=== PATIENT | female | born 1945 | race Caucasian/White ===

== ENCOUNTER 2017-07-10 20:28 | Inpatient (IN) | payer MEDICARE ==
[2017-07-10 21:31] LABS: Actual Bicarbonate (HCO3a) 23.1 mEq/L (22-26); Base Excess (BEa) -0.8 mEq/L (0 (+/-) 2.5); CO2 Tension 36.2 mmHg (35.0-45.0); Hematocrit-ABG 49.3 % (36.0-47.0); O2 Tension (PaO2) 84.7 mmHg (80.0-100.0); pH, Arterial 7.42 (7.35-7.45)
[2017-07-10 21:32] LABS: Analyzer IN Cardio ER; Calcium, Ionized 1.1 mmol/L (1.12-1.30); Hemoglobin (Hb) 15.7 g/dL (12.0-16.0); Puncture Site RBA
--- NOTE | 2017-07-10 21:46 | RAD ---
FRONTAL VIEW CHEST: CLINICALLY INDICATIONS: Dyspnea. COMPARISON: 05/07/2016 FINDINGS: There is a prominent rounded density of the right perihilar region, similar appearing, with persisten ce of an enlarged cardiac silhouette. Prominent central pulmonary vasculature are present. There is obscuration of the left lower lung zone due to the cardiomediastinal silhouette. IMPRESSION: 1. Grossly stable chest with redemonstration of an enlarged cardiac silhouette and prominent right p erihilar density. 2. The left lung base is not reliably visualized on the basis of this exam due to the enlarged cardi ac silhouette, although it is grossly stable. 3. Chronic obstructive pulmonary disease. POS: [facility]
[2017-07-10 21:50] LABS: #Basophils 0.1 thou/uL (0.0-0.2); #Lymphocytes 0.9 thou/uL (1.20-3.40); #Monocytes 0.6 thou/uL (0.11-0.59); #Neutrophils 9.2 thou/uL (1.40-6.50); %Basophils 0.5 % (0.0-1.0); %Eosinophils 0.3 % (0.0-10.0); %Lymphocytes 8.7 % (21.0-51.0); %Monocytes 5.4 % (0.0-10.0); %Neutrophils 85.1 % (42.0-75.0); Hemoglobin 16.2 g/dL (12.0-16.0); Mean Corpuscular HGB CONC 34.2 g/dL (32.0-36.0); Mean Corpuscular Hemoglobin 33.8 pg (27.0-31.0); Mean Platelet Volume 6.9 fL (7.4-10.4); Platelet Count 250 thou/uL (130-400); RBC Distribution Width 13.5 % (11.5-14.5); Red Blood Cell (RBC) Count 4.78 mill/uL (4.20-5.40); White Blood Cell (WBC) Count 10.8 thou/uL (4.8-10.8)
[2017-07-10 22:13] LABS: ALT (SGPT) 44 U/L (8-55); AST (SGOT) 34 U/L (5-34); Albumin 3.9 g/dL (3.4-4.8); Alkaline Phosphatase 71 U/L (40-150); Anion Gap 18 mmol/L (10-20); BUN (Urea Nitrogen) 27 mg/dL (9.8-20.1); Bilirubin, Total 1.7 mg/dL (0.2-1.2); Calc. Creatinine Clearance 0 mL/min (70-130); Calcium 9.2 mg/dL (7.8-10.44); Carbon Dioxide 22 mmol/L (23-31); Chloride 101 mmol/L (98-107); Estimated GFR-MDRD 32; Globulin 2.2 g/dL (2.4-3.5); Glucose 203 mg/dL (83-110); Magnesium 2.1 mg/dL (1.6-2.6); Phosphorus 5.5 mg/dL (2.3-4.7); Potassium 4.4 mmol/L (3.5-5.1); Protein, Total 6.1 g/dL (6.0-8.3); Sodium 137 mmol/L (136-145)
[2017-07-10 22:18] LABS: CKMB 4.1 ng/mL (0-6.6); Troponin I 0.173 ng/mL (< 0.028)
[2017-07-10] MEDS ORDERED: Furosemide 40 MG/4 ML VIAL ONE (22:50)
[2017-07-11] MEDS ORDERED: Acetaminophen 325 MG TAB PO PRN (00:54)
[2017-07-11 01:07] VITALS: BMI 22.8
[2017-07-11] MEDS ORDERED: Senokot 8.6 MG TAB PO PRN (02:24)
[2017-07-11] MEDS ORDERED: Bisacodyl 10 MG SUPP PR PRN (02:24)
[2017-07-11] MEDS ORDERED: Bisacodyl 5 MG TAB PO PRN (02:24)
[2017-07-11 05:18] LABS: #Lymphocytes 0.8 thou/uL (1.20-3.40); %Basophils 0.1 % (0.0-1.0); %Eosinophils 0.2 % (0.0-10.0); %Lymphocytes 7.5 % (21.0-51.0); %Monocytes 8.8 % (0.0-10.0); %Neutrophils 83.5 % (42.0-75.0); Hemoglobin 14.8 g/dL (12.0-16.0); Mean Corpuscular HGB CONC 33.2 g/dL (32.0-36.0); Mean Corpuscular Hemoglobin 32.6 pg (27.0-31.0); Mean Corpuscular Volume 98.3 fl (81.0-99.0); Mean Platelet Volume 6.7 fL (7.4-10.4); Platelet Count 195 thou/uL (130-400); RBC Distribution Width 13.5 % (11.5-14.5); Red Blood Cell (RBC) Count 4.55 mill/uL (4.20-5.40); White Blood Cell (WBC) Count 10.8 thou/uL (4.8-10.8)
[2017-07-11 06:01] LABS: Anion Gap 14 mmol/L (10-20); BUN (Urea Nitrogen) 27 mg/dL (9.8-20.1); Calc. Creatinine Clearance 38 mL/min (70-130); Calcium 8.7 mg/dL (7.8-10.44); Carbon Dioxide 27 mmol/L (23-31); Chloride 101 mmol/L (98-107); Estimated GFR-MDRD 41; Glucose 129 mg/dL (83-110); Potassium 3.4 mmol/L (3.5-5.1); Sodium 139 mmol/L (136-145)
[2017-07-11] MEDS: Levothyroxine Sodium 100 MCG TAB PO SCH (06:17)
[2017-07-11] MEDS: Furosemide 40 MG/4 ML VIAL SLOW IVP SCH ×2 (06:17→14:39)
--- NOTE | 2017-07-11 06:33 | HP ---
CHIEF COMPLAINT: Shortness of breath and bilateral lower extremity swelling. HISTORY OF PRESENT ILLNESS: This is a 72-year-old female with a known history of pulmonary arterial hypertension, who presents with 2-3 day history of progressive shortness of breath and bilateral lower extremity swelling. Additionally, the patient also noticed increased O2 requirements at home and in the emergency department, has pulse oximetry saturation of 80% while on her home nasal cannula. REVIEW OF SYSTEMS: As per HPI. Constitutional: No recent fevers or chills. No recent significant weight loss or gain that the patient is aware of over the last month. HEENT: No new headaches, vision changes, lightheadedness, or dizziness. The patient states that one of her teeth is loose, but she is not sure that this has actually been contributory to her presentation. Cardiovascular: No new chest pain or chest pressure. Respiratory: As per above. No new cough. No new congestion. Gastrointestinal: No nausea, vomiting. Patient reports a retained appetite. No issues with diarrhea or constipation. Genitourinary: No issues with dysuria. Musculoskeletal: No new myalgias or arthralgias. The remainder of the review of systems otherwise negative. PAST MEDICAL HISTORY: Significant for; 1. Pulmonary hypertension. 2. Asthma. 3. Cataracts. PAST SURGICAL HISTORY: Status post appendectomy, status post hysterectomy, status post cholecystectomy, status post multiple Slater catheters placed over the last 20 years for Veletri infusion. HOME MEDICATIONS: The patient's list includes home oxygen, Lasix 80 mg p.o. q.a.m., levothyroxine 100 mcg p.o. daily, epoprostenol sodium 72 mL IV daily, spironolactone 100 mg p.o. b.i.d., furosemide 40 mg p.o. q.p.m., diphenhydramine 50 mg p.o. at bedtime. ALLERGIES: Include ADHESIVE, LATEX, and VANCOMYCIN. FAMILY HISTORY: The patient denies any known family history of other family members having similar issues. SOCIAL HISTORY: Denies any alcohol, tobacco, or illicit drug use. Reports wishing to be FULL CODE at this point in time. PHYSICAL EXAMINATION: GENERAL: The patient is awake, alert, appropriate, in no acute distress, seated in the hospital bed. HEENT: Normocephalic, atraumatic, marginal dentition, slightly dry mucous membranes, equal ocular motions are intact. CARDIOVASCULAR: S1, S2, significant systolic ejection murmur heard over the entire precordium. Pulses 2+ bilateral upper extremities, 2+ bilateral pitting pedal edema. RESPIRATORY: Diminished throughout without wheezes, rales, or rhonchi. Mild conversational dyspnea. Marginal air movement, otherwise clear to auscultation. ABDOMEN: Positive bowel sounds, soft, nontender to palpation. MUSCULOSKELETAL: Moving all 4 extremities independently and on command. IMAGING: On 07/10/2017, chest x-ray: Impression: "Grossly stable chest with redemonstration of an enlarged cardiac silhouette and prominent right perihilar density. The left lung base is not reliably visualized on the basis of this exam due to the enlarged cardiac silhouette, although it is grossly stable. Chronic obstructive pulmonary disease." LABORATORY DATA: WBC 10.8, hemoglobin 16.2, hematocrit 47.3, platelets 250, 000. D-dimer 0.45. ABG: pH of 7.42, pCO2 of 36.2, pO2 of 84.7. Sodium 137, potassium 4.4, chloride 101, bicarbonate 22, BUN 27, creatinine 1.58, glucose 203, calcium 9.2, phosphorus 5.5, magnesium 2.1, total bilirubin 1.7, AST 34, ALT 44, alkaline phosphatase 71. Troponin 0.173. BNP natriuretic peptide 2440.8, total protein 6.1, albumin 3.9. ASSESSMENT AND PLAN: A 72-year-old female presenting with chief complaint of shortness of breath and bilateral lower extremity edema. 1. Shortness of breath with bilateral lower extremity edema. Patient has a known history of pulmonary hypertension. She likely also has a significant amount of heart failure. We will check a transthoracic echo, one that is not found in her outpatient records within the last 6 months. Continue the patient on Lasix. We will transfer her Lasix from oral to IV formulation 40 mg IV b.i.d. with serial monitoring of her renal function and electrolytes. Supplemental O2 as needed. The patient has been placed on a BiPAP at this point in time and feels that this is significantly aided with her respiratory status. 2. History of pulmonary hypertension. Continue the patient on her home regimen as noted above. 3. History of congestive heart failure, see discussion above. 4. Admit the patient to the IMCU on an inpatient basis, FULL CODE. MTDD
[2017-07-11] MEDS: Spironolactone 100 MG TAB PO SCH ×2 (08:42→17:28)
[2017-07-11] MEDS: Enoxaparin Sodium 30 MG/0.3 ML SYRINGE SC SCH (08:42)
[2017-07-11] MEDS: EPOPROSTENOL IV SCH (08:43)
[2017-07-11] MEDS ORDERED: Prevnar 13-Val Conj/PF 0.5 ML SYRINGE IM ONE (09:00)
[2017-07-11] MEDS: Potassium Chloride 20 MEQ TAB PO SCH ×2 (14:39→17:28)
--- NOTE | 2017-07-11 15:31 | CON ---
DATE OF SERVICE: 07/11/2017. SERVICE: Pulmonary Medicine. REASON FOR CONSULTATION: Pulmonary hypertension. HISTORY OF PRESENT ILLNESS: The patient is a 72-year-old white female with a well-established diagnosis of pulmonary arterial hypertension. She has been on Veletri for over 20 years. She denies any current fevers, chills, nausea or vomiting. Over a period of a week, she had increasing dyspnea on exertion. She had increasing dependency on oxygen. As such, she presented to the Emergency Department when she got to the point where she could no longer get across the room anymore. In the Emergency Department, she was carefully placed on noninvasive ventilation. She was given a dose of Lasix. This morning, she feels a little bit better. She hated using her CPAP equipment. She denies any current fevers, chills, nausea or vomiting. Otherwise, she is returning to her usual state of health and is able to talk in full sentences again. PAST MEDICAL HISTORY: 1. Pulmonary arterial hypertension. 2. Asthma. 3. Cataracts. PAST SURGICAL HISTORY: 1. Appendectomy. 2. Cholecystectomy. 3. Partial thyroidectomy. 4. Hysterectomy. 5. Slater catheter placements, multiple. ALLERGIES: ADHESIVES, LATEX, VANCOMYCIN. MEDICATIONS: List of her inpatient medications were reviewed. Multiple updates were made. FAMILY HISTORY: Noncontributory. SOCIAL HISTORY: Negative for alcohol, tobacco or illicit drug use. She denies any exposure to chemicals, dust asbestos or tuberculosis currently. REVIEW OF SYSTEMS: General, head, ears, eyes, nose, throat, cardiovascular, respiratory, GI, , musculoskeletal, neurologic and skin is negative except as mentioned in the HPI. PHYSICAL EXAMINATION: VITAL SIGNS: Afebrile, pulse 89, blood pressure 103/57, respirations 16, saturation 92% on 4 liters nasal cannula. GENERAL: The patient is awake, alert, no apparent distress. LUNGS: Excellent air entry. Dependent crackles are present. There is a minimally prolonged expiratory phase, but I do not hear rhonchi or wheezing. HEART: Normal rate, regular. ABDOMEN: Soft, nontender, nondistended. Bowel sounds are positive. MUSCULOSKELETAL: No cyanosis or clubbing. There is 2+ pitting in the bilateral lower extremities. GENITOURINARY: No [place]. NEUROLOGIC: Grossly nonfocal. LABORATORY DATA: WBC 10.8, hemoglobin 14.8. Platelets 195,000. D-dimer 0.45. ABG is perfectly normal. On 36% FIO2, she has a pO2 of 85. Creatinine 1.29, which has improved overnight. Basic metabolic profile is otherwise unremarkable. Potassium 3.4. Liver function studies were previously unremarkable. BNP 2400 over a baseline of less than 100. Troponin 0.173. IMAGIN. Chest x-ray demonstrates enlarged cardiac silhouette with prominent right perihilar density. 2. Chronic obstructive lung changes are also identified. ASSESSMENT: 1. Acute on chronic hypoxic respiratory failure. 2. Pulmonary arterial hypertension. 3. Right ventricular heart failure/cor pulmonale with acute exacerbation. 4. Asthma. DISCUSSION AND PLAN: We will provide her with 5 days of steroids. We will give her frequent nebulized medications. I will replace potassium. We will try to diurese her. Her end-organ damage seems to be improving, so hopefully, her contractility is going to start to improve as she gets back on top of her Starling curve. If she fails to diurese or develops worsening end-organ damage , we may need to consider putting or adding an inotropic agent to support to the heart and facilitate diuresis. Since she is clearing her end-organ damage, I am going to postpone that intervention. She will need to remain in the IMCU for the time being. Noninvasive ventilation will be interrupted as the patient did not like it, and the positive pressure could decrease the pre load. 70 minutes have been devoted to this patient in various activities. I personally reviewed all imaging studies and laboratory data noted within this document. For fifty percent of this time, I was interacting with the patient at the bedside or coordinating care with the care team. For the remainder of the time I was immediately available to the patient in the hospital unit. ABELARDO
[2017-07-11] MEDS: diphenhydrAMINE 50 MG CAP PO SCH (21:03)
[2017-07-12 04:19] LABS: #Lymphocytes 0.9 thou/uL (1.20-3.40); #Monocytes 0.5 thou/uL (0.11-0.59); %Basophils 0.1 % (0.0-1.0); %Eosinophils 0.4 % (0.0-10.0); %Lymphocytes 12.2 % (21.0-51.0); %Monocytes 7.2 % (0.0-10.0); %Neutrophils 80.2 % (42.0-75.0); Hemoglobin 15.3 g/dL (12.0-16.0); Mean Corpuscular HGB CONC 33.3 g/dL (32.0-36.0); Mean Corpuscular Volume 99.3 fl (81.0-99.0); Mean Platelet Volume 7.1 fL (7.4-10.4); Platelet Count 210 thou/uL (130-400); RBC Distribution Width 13.5 % (11.5-14.5); Red Blood Cell (RBC) Count 4.62 mill/uL (4.20-5.40); White Blood Cell (WBC) Count 7.4 thou/uL (4.8-10.8)
[2017-07-12 04:24] LABS: Anion Gap 14 mmol/L (10-20); BUN (Urea Nitrogen) 27 mg/dL (9.8-20.1); Calc. Creatinine Clearance 41 mL/min (70-130); Calcium 9.2 mg/dL (7.8-10.44); Carbon Dioxide 27 mmol/L (23-31); Chloride 103 mmol/L (98-107); Estimated GFR-MDRD 44; Glucose 112 mg/dL (83-110); Magnesium 1.9 mg/dL (1.6-2.6); Potassium 4.6 mmol/L (3.5-5.1); Sodium 139 mmol/L (136-145)
[2017-07-12] MEDS: Levothyroxine Sodium 100 MCG TAB PO SCH (05:04)
[2017-07-12] MEDS: Furosemide 40 MG/4 ML VIAL SLOW IVP SCH ×2 (05:04→13:52)
[2017-07-12] MEDS: EPOPROSTENOL IV SCH (08:20)
[2017-07-12] MEDS: Spironolactone 100 MG TAB PO SCH ×2 (08:20→17:01)
[2017-07-12] MEDS: Enoxaparin Sodium 30 MG/0.3 ML SYRINGE SC SCH (08:21)
[2017-07-12 09:04] LABS: Free T4 (Free Thyroxine) 1.18 ng/dL (0.70-1.48)
--- NOTE | 2017-07-12 14:06 | PRG ---
DATE OF SERVICE: 07/12/2017 Ms. Stearns says she is feeling better. She is in no distress. She got up and actually walked around the unit today. PHYSICAL EXAMINATION: VITAL SIGNS: She is afebrile, heart rate 84, respiratory rate 16, oximetry is 92 on 4 liters, blood pressure 112/54. LUNGS: Lungs are clear anteriorly. HEART: Regular rhythm. ABDOMEN: Abdomen is soft. IMPRESSION: Pulmonary hypertension. Lab was reviewed. Her white count 7.4, hemoglobin 15.3, platelets 210,000. Electrolytes are normal. Creatinine is down from 1.58 to 1.2. She also has a history of asthma. She said she feels much better than she felt when she was admitted . We will continue with current care.
--- NOTE | 2017-07-12 15:32 | PDOC.PN ---
- Subjective Encounter Start Date: 07/12/17 Encounter Start Time: 08:40 Pt seen for followup re: acute hypoxic respiratory failure. Feels better. less short of breath. Ambulating. Occ cough, no sputum. No fevers or chills. - Objective Resuscitation Status: Resuscitation Status FULL:Full Resuscitation MAR Reviewed: Yes Vital Signs & Weight: Vital Signs (12 hours) Temp Pulse Resp BP Pulse Ox 07/12/17 15:27 94 L 07/12/17 15:24 100 20 94 L 07/12/17 15:09 98.4 F 82 18 100/61 94 L 07/12/17 11:30 84 16 112/54 L 92 L 07/12/17 07:41 98.8 F 93 16 95 07/12/17 07:32 98.8 F 93 16 106/64 95 07/12/17 04:00 97.0 F L 80 18 91/47 L 96 Weight Weight 133 lb 14.4 oz I&O: 07/11/17 07/12/17 07/13/17 06:59 06:59 06:59 Intake Total 515 1515 360 Output Total 900 2200 Balance -385 -685 360 Result Diagrams: 07/12/17 03:27 07/12/17 03:27 EKG Reviewed by me: Yes (Tele: NSR) Phys Exam - Physical Examination Constitutional: NAD HEENT: moist MMs, sclera anicteric, oral pharynx no lesions, 2+ tonsils Neck: no nodes, no JVD, supple, full ROM Respiratory: no wheezing, no rales, no rhonchi, clear to auscultation bilateral Cardiovascular: RRR, no rub S1, S2 Gastrointestinal: soft, non-tender, no distention, positive bowel sounds Musculoskeletal: edema present Neurological: moves all 4 limbs Psychiatric: normal affect, A&O x 3 Dx/Plan (1) Acute respiratory failure with hypoxia Code(s): J96.01 - ACUTE RESPIRATORY FAILURE WITH HYPOXIA Status: Acute Comment: Improving, likely due to PAH (2) MASTER (acute kidney injury) Code(s): N17.9 - ACUTE KIDNEY FAILURE, UNSPECIFIED Status: Acute Comment: Creatinine improving (3) Volume overload Code(s): E87.70 - FLUID OVERLOAD, UNSPECIFIED Status: Acute Comment: continue IV furosemide (4) Pulmonary hypertension Code(s): I27.20 - PULMONARY HYPERTENSION, UNSPECIFIED Status: Chronic Comment: continue epoprostenol (5) Asthma Code(s): J45.909 - UNSPECIFIED ASTHMA, UNCOMPLICATED Status: Chronic Comment : stable - Plan * . Review of Systems - Review of Systems Constitutional: negative: fever, chills, sweats, weakness, malaise Respiratory: Cough, Shortness of Breath, SOB with Excertion. negative: Dry, Hemoptysis, Pleuritic Pain, Sputum, Wheezing Cardiovascular: negative: chest pain, palpitations, orthopnea, paroxysmal nocturnal dyspnea, edema, light headedness Gastrointestinal: negative: Nausea, Vomiting, Abdominal Pain, Diarrhea, Constipation, Melena, Hematochezia Genitourinary: negative: Dysuria, Frequency, Incontinence, Hematuria, Retention Skin: negative: Rash, Lesions, Eddi, Bruising - Medications/Allergies Allergies/Adverse Reactions: Allergies Allergy/AdvReac Type Severity Reaction Status Date / Time adhesive Allergy Verified 07/11/17 05:45 latex Allergy Verified 07/11/17 05:45 vancomycin Allergy Verified 07/11/17 05:45 Medications: Current Medications Albuterol/Ipratropium (Duoneb) 3 ml NEB [id number] [facility] Last Admin: 07/12/17 15:24 Dose: 3 ml Bisacodyl (Dulcolax) 10 mg PO DAILYPRN PRN PRN Reason: Constipation Bisacodyl (Dulcolax) 10 mg IA Q24H PRN PRN Reason: Constipation Diphenhydramine HCl (Benadryl) 50 mg PO HS [facility] Last Admin: 07/11/17 21:03 Dose: 50 mg Enoxaparin Sodium (Lovenox) 30 mg SC 0900 [facility] Last Admin: 07/12/17 08:21 Dose: 30 mg Furosemide (Lasix) 40 mg SLOW IVP 0600,1400 [facility] Last Admin: 07/12/17 13:52 Dose: 40 mg Levothyroxine Sodium (Synthroid) 100 mcg PO 0600 [facility] Last Admin: 07/12/17 05:04 Dose: 100 mcg (Epoprostenol Sodium (Glycine) [ Epoprostenol Sodium 1.5 Mg Iv] 0 each IV DAILY [facility] Last Admin: 07/12/17 08:20 Dose: 1 each Senna (Senokot) 2 tab PO HSPRN PRN PRN Reason: Constipation Spironolactone (Aldactone) 100 mg PO BID-[facility] Last Admin: 07/12/17 08:20 Dose: 100 mg
[2017-07-12] MEDS: diphenhydrAMINE 50 MG CAP PO SCH (21:55)
[2017-07-12] MEDS: Acetaminophen 500 MG TAB PO PRN (23:05)
[2017-07-13 02:44] LABS: #Lymphocytes 0.9 thou/uL (1.20-3.40); #Monocytes 0.7 thou/uL (0.11-0.59); %Basophils 0.3 % (0.0-1.0); %Eosinophils 0.3 % (0.0-10.0); %Lymphocytes 10.9 % (21.0-51.0); %Monocytes 7.7 % (0.0-10.0); %Neutrophils 80.8 % (42.0-75.0); Hemoglobin 14.3 g/dL (12.0-16.0); Mean Corpuscular Hemoglobin 32.6 pg (27.0-31.0); Mean Corpuscular Volume 98.8 fl (81.0-99.0); Mean Platelet Volume 6.7 fL (7.4-10.4); Platelet Count 195 thou/uL (130-400); RBC Distribution Width 13.5 % (11.5-14.5); Red Blood Cell (RBC) Count 4.39 mill/uL (4.20-5.40); White Blood Cell (WBC) Count 8.7 thou/uL (4.8-10.8)
[2017-07-13 03:01] LABS: Troponin I 0.182 ng/mL (< 0.028)
[2017-07-13 03:18] LABS: Anion Gap 14 mmol/L (10-20); BUN (Urea Nitrogen) 29 mg/dL (9.8-20.1); Calc. Creatinine Clearance 41 mL/min (70-130); Calcium 9.2 mg/dL (7.8-10.44); Carbon Dioxide 28 mmol/L (23-31); Chloride 102 mmol/L (98-107); Estimated GFR-MDRD 44; Glucose 117 mg/dL (83-110); Magnesium 1.9 mg/dL (1.6-2.6); Potassium 4.1 mmol/L (3.5-5.1); Sodium 140 mmol/L (136-145)
[2017-07-13] MEDS: Furosemide 40 MG/4 ML VIAL SLOW IVP SCH ×2 (05:38→13:48)
[2017-07-13] MEDS: Levothyroxine Sodium 100 MCG TAB PO SCH (05:38)
[2017-07-13 06:03] LABS: Troponin I 0.177 ng/mL (< 0.028)
--- NOTE | 2017-07-13 08:48 | PRG ---
DATE OF SERVICE: 07/13/2017 This is a 72-year-old female admitted yesterday with marked weakness, history of a DVT. She went to the restaurant to eat, she could barely walk from her table to her car, marked weakness in the leg ar ea. She has been in the ____ now for several days. She is feeling better. Swelling of the legs are much improved. PHYSICAL EXAMINATION: VITAL SIGNS: Her blood pressure is 95/60, sats 90 on 4 liters, temperature 98, pulse 97. Her I's an d O's are 1479 in, 1250 out. CHEST: Chest reveals decreased breath sounds without any wheezing. CARDIAC: Normal S1, S2. ABDOMEN: Soft, no masses. LABORATORY: White count 8000, H&H 8 and 43, platelet count is normal. Creatinine 1.20. IMPRESSION: 1. Primary pulmonary hypertension on long-term Flolan. 2. Mild azotemia. 3. Severe deconditioning. PLAN: Continue diuretics. Continue supportive care. I have ordered PT. I will follow.
[2017-07-13] MEDS: Enoxaparin Sodium 30 MG/0.3 ML SYRINGE SC SCH (08:51)
[2017-07-13] MEDS: Spironolactone 100 MG TAB PO SCH ×2 (08:51→17:02)
[2017-07-13] MEDS: EPOPROSTENOL IV SCH (08:52)
[2017-07-13] MEDS: Acetaminophen 500 MG TAB PO PRN (13:43)
--- NOTE | 2017-07-13 17:33 | PDOC.PN ---
- Subjective Encounter Start Date: 07/13/17 Encounter Start Time: 09:40 Pt seen for followup re: acute hypoxic respiratory failure. Feels better. Ambulating with less shortness of breath. - Objective Resuscitation Status: Resuscitation Status FULL:Full Resuscitation MAR Reviewed: Yes Vital Signs & Weight: Vital Signs (12 hours) Temp Pulse Resp BP Pulse Ox 07/13/17 16:55 98.7 F 104 H 16 105/55 L 92 L 07/13/17 15:03 89 19 93 L 07/13/17 13:40 99.1 F 85 16 109/61 91 L 07/13/17 10:47 94 18 90 L 07/13/17 08:00 98.6 F 97 16 97 07/13/17 07:30 98.6 F 97 16 95/60 89 L 07/13/17 07:03 89 18 94 L Weight Weight 132 lb 4.8 oz I&O: 07/12/17 07/13/17 07/14/17 06:59 06:59 06:59 Intake Total 1515 1479 Output Total 2200 1250 Balance -685 229 Result Diagrams: 07/13/17 02:26 07/13/17 02:26 EKG Reviewed by me: Yes (Tele: NSR, runs of SVT) Phys Exam - Physical Examination Constitutional: NAD HEENT: moist MMs Neck: supple Respiratory: clear to auscultation bilateral Cardiovascular: RRR Gastrointestinal: soft Musculoskeletal: edema present Neurological: moves all 4 limbs Psychiatric: normal affect Dx/Plan (1) Acute respiratory failure with hypoxia Code(s): J96.01 - ACUTE RESPIRATORY FAILURE WITH HYPOXIA Status: Acute Comment: Improving, likely due to PAH and volume overload (2) SVT (supraventricular tachycardia) Code(s): I47.1 - SUPRAVENTRICULAR TACHYCARDIA Status: Acute Comment: Currently in sinus rhythm. Cardiology consulted. (3) MASTER (acute kidney injury) Code(s): N17.9 - ACUTE KIDNEY FAILURE, UNSPECIFIED Status: Acute Comment: Creatinine improved (4) Volume overload Code(s): E87.70 - FLUID OVERLOAD, UNSPECIFIED Status: Acute Comment: continue IV furosemide (5) Pulmonary hypertension Code(s): I27.20 - PULMONARY HYPERTENSION, UNSPECIFIED Status: Chronic Comment: continue epoprostenol (6) Asthma Code(s): J45.909 - UNSPECIFIED ASTHMA, UNCOMPLICATED Status: Chronic Comment : stable - Plan * . Review of Systems - Review of Systems Constitutional: other. negative: fever, chills, sweats, weakness, malaise Respiratory: SOB with Excertion. negative: Cough, Shortness of Breath, Pleuritic Pain, Wheezing Cardiovascular: palpitations. negative: chest pain, orthopnea, paroxysmal nocturnal dyspnea, edema, light headedness - Medications/Allergies Allergies/Adverse Reactions: Allergies Allergy/AdvReac Type Severity Reaction Status Date / Time adhesive Allergy Verified 07/11/17 05:45 latex Allergy Verified 07/11/17 05:45 vancomycin Allergy Verified 07/11/17 05:45 Medications: Current Medications Acetaminophen (Tylenol) 1,000 mg PO Q6H PRN PRN Reason: Headache/Fever or Pain Last Admin: 07/13/17 13:43 Dose: 1,000 mg Albuterol/Ipratropium (Duoneb) 3 ml NEB [id number] Last Admin: 07/13/17 15:03 Dose: 3 ml Bisacodyl (Dulcolax) 10 mg PO DAILYPRN PRN PRN Reason: Constipation Bisacodyl (Dulcolax) 10 mg SC Q24H PRN PRN Reason: Constipation Diphenhydramine HCl (Benadryl) 50 mg PO HS [facility] Last Admin: 07/12/17 21:55 Dose: 50 mg Enoxaparin Sodium (Lovenox) 30 mg SC 0900 [facility] Last Admin: 07/13/17 08:51 Dose: 30 mg Furosemide (Lasix) 40 mg SLOW IVP 0600,1400 [facility] Last Admin: 07/13/17 13:48 Dose: 40 mg Levothyroxine Sodium (Synthroid) 100 mcg PO 0600 [facility] Last Admin: 07/13/17 05:38 Dose: 100 mcg (Epoprostenol Sodium (Glycine) [ Epoprostenol Sodium 1.5 Mg Iv] 0 each IV DAILY [facility] Last Admin: 07/13/17 08:52 Dose: 1 each Senna (Senokot) 2 tab PO HSPRN PRN PRN Reason: Constipation Spironolactone (Aldactone) 100 mg PO BID-[facility] [place] Last Admin: 07/13/17 17:02 Dose: 100 mg
--- NOTE | 2017-07-13 19:18 | CON ---
DATE OF CONSULTATION: 07/13/2017 REASON FOR CONSULTATION: Abnormal echo. HISTORY OF PRESENT ILLNESS: Ms. Stearns is a pleasant 72-year-old white female who comes to the hospit sc for increased shortness of breath and swelling. She has a history of severe pulmonary hypertensio n and has been on Veletri for over 20 years now. She was admitted with increased swelling and shortn ess of breath, so she was admitted for IV Lasix. During her admission, an echocardiogram was perform ed that showed a possible mass in the interatrial septum, so Cardiology is being consulted. Last nig ht, she had an episode of 11 minutes of sustained supraventricular tachycardia, heart rates in the 16 0s. She did not feel well during that time. She felt weak, tired, and presyncopal. PAST MEDICAL HISTORY: 1. Pulmonary arterial hypertension. 2. Bronchial asthma. 3. Cataracts. 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 PAST SURGICAL HISTORY: 1. Appendectomy. 2. Cholecystectomy. 3. Partial thyroidectomy. 4. Hysterectomy. 5. Slater catheter placement, multiple times. OUTPATIENT MEDICATIONS: 1. Home O2. 2. Lasix 80 mg q.a.m. 3. Levothyroxine 100 mcg a day. 4. Glycine, which is epoprostenol 7 mL IV daily. 5. Aldactone 100 mg p.o. b.i.d. 6. Lasix 40 mg p.o. q.p.m. 7. Benadryl 50 mg at bedtime. ALLERGIES: 1. ADHESIVE. 2. LATEX. 3. VANCOMYCIN. FAMILY HISTORY: Noncontributory. SOCIAL HISTORY: No alcohol, tobacco, or drugs. REVIEW OF SYSTEMS: A 12-point review of systems was done and is all negative unless stated in the hi story of present illness. PHYSICAL EXAMINATION: VITAL SIGNS: Temperature 99.1, pulse 85, respiratory rate 16, saturating 91% on 4 liters, blood pres sure 109/61. GENERAL: Awake, alert, oriented x3, in no distress. HEENT: Normocephalic, atraumatic. NECK: Supple. LUNGS: Have reduced breath sounds bilaterally. CARDIOVASCULAR: S1, S2. No S3, S4. There is a grade 3/6 systolic murmur at the left fourth interco stal space right to the rest of the precordium. ABDOMEN: Soft. Positive bowel sounds. EXTREMITIES: 1+ edema. SKIN: Warm and dry. LABORATORY DATA: Laboratory work was reviewed. CBC is unremarkable. Coags, D-dimer is little bit h igh. ABG was reviewed. Chemistries were reviewed. BUN of 29, creatinine 1.2, GFR 44. Normal sodiu m. Potassium little low at 3.4, but this was back on the . Her SVT was overnight on -. Troponin has been 0.18, 0.17. BNP on admission was 2440. TSH was low, but a normal free T4 and sadia e T3. ASSESSMENT AND PLAN: 1. 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 This was performed long time ago in [place] and it looks the same as it has been seen in echocardiograms in the office lately. No need for transesophageal echo at this time. The occlud er is actually working just fine. 2. Sustained supraventricular tachycardia, symptomatic: We will do an EP evaluation for this, as hilaria uribe is a complex case with enlarged right-sided chambers. She may not be a candidate for an ablation. We will discuss with EP. 3. Primary pulmonary hypertension: Followed by Pulmonary. Agree with Sheryl. She is close to being euvolemic, although she still has some fluid in her legs, which is not her normal. She is usually v alicia dry. Thank you for letting us participate in the care of your patient. We will follow.
[2017-07-13] MEDS: diphenhydrAMINE 50 MG CAP PO SCH (21:13)
[2017-07-14] MEDS: Furosemide 40 MG/4 ML VIAL SLOW IVP SCH (05:58)
[2017-07-14] MEDS: Levothyroxine Sodium 100 MCG TAB PO SCH (05:58)
--- NOTE | 2017-07-14 08:59 | PRG ---
DATE OF SERVICE: 07/14/2017 She is awake, alert, responsive, weak. PHYSICAL EXAMINATION: VITAL SIGNS: Sats 97 on 4 liters, I dropped it to 3 liters, temperature 97, pulse 108, blood pressu re 110/70, 10/10 pain, discomfort, is clearly weak. CHEST: Chest reveals decreased breath sounds, no wheezing. CARDIAC: Normal S1, S2, no gallops. ABDOMEN: Soft, no masses. IMPRESSION: 1. Severe pulmonary hypertension with right-sided failure. 2. Marked weakness. 3. Normal ejection fraction. PLAN: Continue present diuretics. Supportive care. Hopefully, she can be discharged home in the near future. I will follow.
[2017-07-14] MEDS: Spironolactone 100 MG TAB PO SCH ×2 (09:25→17:06)
[2017-07-14] MEDS: Enoxaparin Sodium 30 MG/0.3 ML SYRINGE SC SCH (09:25)
[2017-07-14] MEDS: EPOPROSTENOL IV SCH (09:26)
--- NOTE | 2017-07-14 12:07 | PDOC.PN ---
- Subjective Encounter Start Date: 07/14/17 Encounter Start Time: 09:40 states she is doing better however has noticed that her HR consistently stays over 100 - Objective Resuscitation Status: Resuscitation Status FULL:Full Resuscitation Vital Signs & Weight: Vital Signs (12 hours) Temp Pulse Resp BP Pulse Ox 07/14/17 11:49 96.7 F L 102 H 20 102/74 98 07/14/17 11:06 104 H 18 07/14/17 08:00 98 F 108 H 18 91 L 07/14/17 07:42 97.5 F L 104 H 111/70 97 07/14/17 03:42 97.3 F L 89 17 121/59 L 100 Weight Weight 132 lb 3 oz I&O: 07/13/17 07/14/17 07/15/17 06:59 06:59 06:59 Intake Total 1479 1829 Output Total 1250 2100 Balance 229 -271 Result Diagrams: 07/13/17 02:26 07/13/17 02:26 Phys Exam - Physical Examination Constitutional: NAD HEENT: PERRLA, moist MMs, sclera anicteric Neck: no nodes, no JVD, supple Respiratory: no wheezing, no rales, no rhonchi fine crackles b/l Cardiovascular: no significant murmur, no rub tachycardic Gastrointestinal: soft, non-tender, no distention Musculoskeletal: pulses present Neurological: non-focal, moves all 4 limbs Psychiatric: normal affect, A&O x 3 Skin: cap refill <2 seconds Dx/Plan (1) MASTER (acute kidney injury) Code(s): N17.9 - ACUTE KIDNEY FAILURE, UNSPECIFIED Status: Acute Comment: Creatinine improved (2) Acute respiratory failure with hypoxia Code(s): J96.01 - ACUTE RESPIRATORY FAILURE WITH HYPOXIA Status: Acute Comment: Improving, likely due to PAH and volume overload (3) SVT (supraventricular tachycardia) Code(s): I47.1 - SUPRAVENTRICULAR TACHYCARDIA Status: Acute Comment: Currently in sinus rhythm but tachycardic (4) Asthma Code(s): J45.909 - UNSPECIFIED ASTHMA, UNCOMPLICATED Status: Chronic Comment : stable (5) Pulmonary hypertension Code(s): I27.20 - PULMONARY HYPERTENSION, UNSPECIFIED Status: Chronic Comment: continue epoprostenol - Plan cont current plan of care, plan discussed w/ family * . awaiting eval from EP who are coming from [place] apparently HR continues to be over 100 and while talking, it goes higher than 110. supportive care mgmt
--- NOTE | 2017-07-14 12:47 | PDOC.CTH ---
Cardiology Progress Note - Subjective She is doing better. No more SVT. Diuresing well. - Objective Vital Signs Temp Pulse Resp BP Pulse Ox 07/14/17 11:49 96.7 F L 102 H 20 102/74 98 07/14/17 11:06 104 H 18 07/14/17 08:00 98 F 108 H 18 91 L 07/14/17 07:42 97.5 F L 104 H 111/70 97 07/14/17 03:42 97.3 F L 89 17 121/59 L 100 Weight 132 lb 3 oz 07/13/17 07/14/17 07/15/17 06:59 06:59 06:59 Intake Total 1479 1829 Output Total 1250 2100 Balance 229 -271 - Physical Examination General/Neuro: alert & oriented x3, NAD Neck: no JVD present Lungs: CTA, unlabored respirations Heart: RRR Abdomen: NT/ND Extremities: other: (no edema.) - Telemetry Telemetry Rhythm: S tach, PVC's - Labs Result Diagrams: 07/13/17 02:26 07/13/17 02:26 Troponin/CKMB CK-MB (CK-2) 4.1 ng/mL (0-6.6) 07/10/17 21:36 Troponin I 0.177 ng/mL (< 0.028) H 07/13/17 04:43 - Assessment/Plan 1. SVT 2. Pulmonary hypertension with acute exacerbation PLAN: - Agree with continued IV lasix - EP consult pending.
[2017-07-14] MEDS: Mometasone/Formoterol 120 PUFF INHALER INH SCH (18:26)
--- NOTE | 2017-07-14 19:40 | CON ---
DATE OF CONSULTATION: 07/14/2017 ELECTROPHYSIOLOGY CONSULTATION REQUESTING PHYSICIAN: Dr. Monzon. REASON FOR REQUEST: Supraventricular tachycardia. HISTORY OF PRESENT ILLNESS: Ms. Stearns is a 72-year-old female with a history of severe pulmonary hyp ertension, chronic kidney disease, ASD, status post ASD occlusion device, who was admitted to the [facility] with shortness of breath. She has been treated for this, and during hospitalization has been n oted to have an elevated heart rate as well as a 15-minute period of supraventricular tachycardia. S he states that she was asleep when this occurred and she is essentially asymptomatic with her heart c urrently. PAST MEDICAL HISTORY: Significant for severe pulmonary hypertension; ASD, status post ASD closure; h istory of stroke, diastolic dysfunction, thyroidectomy, chronic kidney disease, and prolonged QT. MEDICATIONS: Include spironolactone, Lasix, Synthroid, Zyrtec, and intravenous Veletri. FAMILY HISTORY: No early coronary artery disease, sudden cardiac . SOCIAL HISTORY: She does not drink, smoke, use illicit medications. REVIEW OF SYSTEMS: Reviewed. She denies nausea, vomiting, diarrhea, fevers, chills, change in visio n or hearing loss the HPI. PHYSICAL EXAMINATION: VITAL SIGNS: Pulse is 120, blood pressure 112/72. HEENT: Pupils equal, round, react to light and accommodation. Extraocular movements are intact. No se midline. Septum has no rhinorrhea or epistaxis. Throat, no erythema or exudate. NECK: Supple without lymphadenopathy or goiter. There . LUNGS: Reveal diminished breath sounds bilaterally. HEART: Tachycardic with distant heart sounds. LUNGS: Diminished breath sounds bilaterally. ABDOMEN: Soft, nontender, nondistended. Present bowel sounds. EXTREMITIES: Without cyanosis, clubbing, or edema. NEUROLOGIC: Cranial nerves II-XII are grossly intact. DIAGNOSTICS: Echocardiogram shows left ventricular ejection fraction and ASD occluder in situ. Tele metry reveals sinus tachycardia, PVCs, and nonsustained ventricular tachycardia, and an episode that appeared to be consistent with atrial tachycardia. Electrocardiogram, sinus rhythm, biatrial enlarge ment, right bundle branch block, right ventricular conduction delay. IMPRESSION: 1. Severe pulmonary hypertension. 2. Atrial tachycardia. 3. History of atrial septal defect closure with an Amplatzer device. 4. Chronic kidney disease. 5. Prolonged QT. RECOMMENDATIONS: Ms. Stearns has a difficult situation. She has severe lung disease with pulmonary hy pertension along with this sinus tachycardia as well as atrial tachycardias are frequently seen in ad dition to the nonsustained ventricular tachycardia that she has. I would recommend optimization of h er lung status if possible. Regarding arrhythmia treatment, she does not have great options for this , ablation would likely be a high risk. She also has limited medical options with her previous histo ry of prolonged QT. One option to be considered would be verapamil if okay with her pulmonary doctor s, as this occasionally is helpful for pulmonary hypertension, diastolic dysfunction, and may help co ntrol heart rates in atrial tachycardia.
[2017-07-14] MEDS: diphenhydrAMINE 50 MG CAP PO SCH (20:56)
[2017-07-14] MEDS: Acetaminophen 500 MG TAB PO PRN (22:58)
[2017-07-15] MEDS: Levothyroxine Sodium 100 MCG TAB PO SCH (06:18)
[2017-07-15] MEDS: Furosemide 40 MG TAB PO SCH (06:18)
[2017-07-15] MEDS: Mometasone/Formoterol 120 PUFF INHALER INH SCH ×2 (07:18→18:03)
[2017-07-15] MEDS: Spironolactone 100 MG TAB PO SCH ×2 (08:35→17:30)
[2017-07-15] MEDS: Enoxaparin Sodium 30 MG/0.3 ML SYRINGE SC SCH (08:35)
[2017-07-15] MEDS: EPOPROSTENOL IV SCH (08:45)
--- NOTE | 2017-07-15 09:00 | PRG ---
DATE OF SERVICE: 07/15/2017 This morning she is awake, alert, responsive. She had a run of V-tach last night. Apparently she is asymptomatic. PHYSICAL EXAMINATION: VITAL SIGNS: Her sats are running 95% on 3 liters, pulse 103, temperature 96, blood pressure 99/61. Cough is improved. CHEST: No wheezing or crackles. CARDIAC: Normal S1, S2, no gallops. ABDOMEN: Soft, no mass. EXTREMITIES: Trace edema. IMPRESSION: 1. Primary pulmonary hypertension, severe long-term flow line. 2. History of ASD, status post patch. 3. Renal failure. PLAN: EP is considering starting verapamil. From a pulmonary standpoint of view, I see no reason to start verapamil. In the meantime, continue l ow flow O2, neb treatments, supportive care. Long-term prognosis is grave. She was encouraged to go back to see her pulmonary hypertension doctor in [place] at some time.
--- NOTE | 2017-07-15 13:48 | PDOC.PN ---
- Subjective Encounter Start Date: 07/15/17 Encounter Start Time: 09:40 Pt seen and examined, chart reviewed in its entirety, this is my first visit with this patient Pt sleeping soundly, 92% on 3L, easily arousable. no f/C, no n/V/dC, no CP, SOb stable, no new complaints No acute events, no new complaints all systems reviewed and neg x as above - Objective Resuscitation Status: Resuscitation Status FULL:Full Resuscitation MAR Reviewed: Yes Vital Signs & Weight: Vital Signs (12 hours) Temp Pulse Resp BP Pulse Ox 07/15/17 11:34 97.7 F 100 105/73 92 L 07/15/17 10:35 115 H 18 92 L 07/15/17 08:30 96.6 F L 103 H 16 95 07/15/17 07:55 96.6 F L 103 H 99/61 95 07/15/17 07:17 98 16 95 07/15/17 03:47 98.4 F 95 17 113/64 91 L Weight Weight 134 lb I&O: 07/14/17 07/15/17 07/16/17 06:59 06:59 06:59 Intake Total 1829 1600 250 Output Total 2100 1925 700 Balance -271 -325 -450 Result Diagrams: 07/13/17 02:26 07/13/17 02:26 Radiology Reviewed by me: Yes EKG Reviewed by me: Yes Phys Exam - Physical Examination Constitutional: NAD HEENT: PERRLA, moist MMs, sclera anicteric, oral pharynx no lesions Neck: no nodes, no JVD, supple, full ROM Respiratory: no wheezing, no rhonchi bibasilar coarse rales Cardiovascular: RRR, no rub 3/6 HSM LLSB Gastrointestinal: soft, non-tender, no distention, positive bowel sounds Musculoskeletal: pulses present, edema present Neurological: non-focal, normal sensation, moves all 4 limbs Lymphatic: no nodes Psychiatric: normal affect, A&O x 3 Skin: no rash, normal turgor, cap refill <2 seconds Dx/Plan (1) MASTER (acute kidney injury) Code(s): N17.9 - ACUTE KIDNEY FAILURE, UNSPECIFIED Status: Acute Comment: Creatinine improved, not checked since 07/13, AM labs ordered (2) Acute respiratory failure with hypoxia Code(s): J96.01 - ACUTE RESPIRATORY FAILURE WITH HYPOXIA Status: Acute Comment: Improving, likely due to PAH and volume overload (3) SVT (supraventricular tachycardia) Code(s): I47.1 - SUPRAVENTRICULAR TACHYCARDIA Status: Acute Comment: Currently in sinus rhythm but tachycardic (4) Volume overload Code(s): E87.70 - FLUID OVERLOAD, UNSPECIFIED Status: Acute Qualifiers: Hypervolemia type: other Qualified Code(s): E87.79 - Other fluid overload Comment: continue IV furosemide (5) Asthma Code(s): J45.909 - UNSPECIFIED ASTHMA, UNCOMPLICATED Status: Chronic Qualifiers: Asthma severity: unspecified severity Asthma persistence: intermittent Asthma complication type: uncomplicated Qualified Code(s): J45.20 - Mild intermittent asthma, uncomplicated Comment: stable (6) Pulmonary hypertension Code(s): I27.20 - PULMONARY HYPERTENSION, UNSPECIFIED Status: Chronic Comment: continue epoprostenol - Plan cont current plan of care, PT/OT, respiratory therapy, out of bed/ambulate * .
--- NOTE | 2017-07-15 17:30 | PDOC.CTH ---
Cardiology Progress Note - Subjective No new issues. - Objective Vital Signs Temp Pulse Resp BP Pulse Ox 07/15/17 16:00 97.9 F 101 H 116/66 92 L 07/15/17 14:57 111 H 20 92 L 07/15/17 11:34 97.7 F 100 105/73 92 L 07/15/17 10:35 115 H 18 92 L 07/15/17 08:30 96.6 F L 103 H 16 95 07/15/17 07:55 96.6 F L 103 H 99/61 95 07/15/17 07:17 98 16 95 Weight 134 lb 07/14/17 07/15/17 07/16/17 06:59 06:59 06:59 Intake Total 1829 1600 550 Output Total 2100 1925 700 Balance -271 -325 -150 - Physical Examination General/Neuro: alert & oriented x3, NAD Neck: no JVD present Lungs: other: (decreased breath sounds bilat) Heart: RRR Abdomen: NT/ND Extremities: + edema B (1+) - Telemetry Telemetry Rhythm: Stach, NSVT - Labs Result Diagrams: 07/13/17 02:26 07/13/17 02:26 Troponin/CKMB CK-MB (CK-2) 4.1 ng/mL (0-6.6) 07/10/17 21:36 Troponin I 0.177 ng/mL (< 0.028) H 07/13/17 04:43 - Assessment/Plan 1. SVT 2. Pulmonary hypertension with acute exacerbation 3. Non sustained VT PLAN: - Appreciate EP evaluation, no good ablative options, recommends verapamil however her BP is borderline low and she ,may not tolerate it at all. We risk a fall and she would not survive a hip surgery. - After a log conversation with her we decided we will continue on current meds , will not start verapamil due to concern for low BP's. - Not a good candidate for a [facility] in the setting of severe pulmonary HTN as she would not survive any complications.
[2017-07-15] MEDS: diphenhydrAMINE 50 MG CAP PO SCH (20:27)
[2017-07-15] MEDS: Acetaminophen 500 MG TAB PO PRN (20:32)
[2017-07-16 04:32] LABS: #Monocytes 0.6 thou/uL (0.11-0.59); #Neutrophils 6.2 thou/uL (1.40-6.50); %Basophils 0.2 % (0.0-1.0); %Eosinophils 0.5 % (0.0-10.0); %Lymphocytes 12.3 % (21.0-51.0); %Monocytes 7.8 % (0.0-10.0); %Neutrophils 79.1 % (42.0-75.0); Hemoglobin 14.1 g/dL (12.0-16.0); Mean Corpuscular HGB CONC 33.2 g/dL (32.0-36.0); Mean Corpuscular Hemoglobin 32.5 pg (27.0-31.0); Mean Corpuscular Volume 98.1 fl (81.0-99.0); Mean Platelet Volume 6.9 fL (7.4-10.4); Platelet Count 195 thou/uL (130-400); RBC Distribution Width 13.3 % (11.5-14.5); Red Blood Cell (RBC) Count 4.33 mill/uL (4.20-5.40); White Blood Cell (WBC) Count 7.8 thou/uL (4.8-10.8)
[2017-07-16 04:44] LABS: Anion Gap 13 mmol/L (10-20); BUN (Urea Nitrogen) 29 mg/dL (9.8-20.1); Calc. Creatinine Clearance 46 mL/min (70-130); Calcium 9.5 mg/dL (7.8-10.44); Carbon Dioxide 29 mmol/L (23-31); Chloride 99 mmol/L (98-107); Estimated GFR-MDRD 50; Glucose 109 mg/dL (83-110); Magnesium 2.1 mg/dL (1.6-2.6); Potassium 3.9 mmol/L (3.5-5.1); Sodium 137 mmol/L (136-145)
[2017-07-16] MEDS: Levothyroxine Sodium 100 MCG TAB PO SCH (06:17)
[2017-07-16] MEDS: Mometasone/Formoterol 120 PUFF INHALER INH SCH ×2 (07:34→19:42)
--- NOTE | 2017-07-16 08:38 | PRG ---
DATE OF SERVICE: 07/16/2017 She is awake, alert, responsive. PHYSICAL EXAMINATION: VITAL SIGNS: Blood pressure is 100/80, sats are 90% on 3 liters, respiration 20, pulse 107, temperat ure 97. GENERAL: She is weak. She has got 2+ ankle edema. CHEST: Chest reveals decreased breath sounds, no wheezing. CARDIAC: Normal S1, S2. ABDOMEN: Soft, no masses. Electrolytes are normal. CBC unremarkable. IMPRESSION: 1. Primary pulmonary hypertension. 2. Severe hypoxemia. 3. Supraventricular tachycardia and V-tach. PLAN: Apparently EP has restarted verapamil because of low blood pressure. At this stage, nothing a dditional can be done. She can be discharged home on her present medication. Once again, I have ask ed her to go and follow up with her transplant physician in [place]. Locally she has seen a insulation worker apprentice, Dr. Monzon.
[2017-07-16] MEDS: Spironolactone 100 MG TAB PO SCH ×2 (08:51→17:56)
[2017-07-16] MEDS: EPOPROSTENOL IV SCH (08:52)
[2017-07-16] MEDS: Enoxaparin Sodium 30 MG/0.3 ML SYRINGE SC SCH (08:52)
[2017-07-16] MEDS: Furosemide 40 MG TAB PO SCH (08:52)
[2017-07-16] MEDS ORDERED: traMADol HCl 50 MG TAB PO PRN (11:51)
[2017-07-16] MEDS ORDERED: Nitroglycerin 0.4 MG TAB (25 Tab Bottle) SL PRN (11:51)
[2017-07-16] MEDS ORDERED: Acetaminophen/Codeine 30-300mg Tablet PO PRN (11:51)
[2017-07-16] MEDS ORDERED: Sodium Chloride 0.9% 200 ML IV SCH (12:00)
[2017-07-16] MEDS ORDERED: Sodium Chloride 0.9% 1,000 ML IV SCH (12:00)
--- NOTE | 2017-07-16 13:22 | PDOC.PN ---
- Subjective Encounter Start Date: 07/16/17 Encounter Start Time: 10:40 Pt awake and sitting up. complaining of peripheral edema. lost IV site, discussed with Dr Monzon, high dose po lasix ordered. No F/C, no CP, +KIDD, orthopnea, no PND. no N/V/D/C no new complaints All systems reviewed adn neg x as per HPI - Objective Resuscitation Status: Resuscitation Status FULL:Full Resuscitation MAR Reviewed: Yes Vital Signs & Weight: Vital Signs (12 hours) Temp Pulse Resp BP Pulse Ox 07/16/17 12:00 97.0 F L 102 H 20 101/61 89 L 07/16/17 11:36 99 16 91 L 07/16/17 08:00 97.5 F L 107 H 20 96 07/16/17 07:34 107 H 20 92 L 07/16/17 07:23 92 L 07/16/17 07:21 107 H 20 92 L 07/16/17 07:00 97.5 F L 96 20 113/73 96 07/16/17 03:45 97.8 F 109 H 20 98/54 L 93 L Weight Weight 135 lb I&O: 07/15/17 07/16/17 07/17/17 06:59 06:59 06:59 Intake Total 1600 1375 Output Total 1925 1275 Balance -325 100 Result Diagrams: 07/16/17 03:54 07/16/17 03:54 Phys Exam - Physical Examination Constitutional: NAD HEENT: PERRLA, moist MMs, sclera anicteric, oral pharynx no lesions Neck: no nodes, no JVD, supple, full ROM bilateral coarse rales, no wheezes Cardiovascular: RRR, no rub 4/6 HSM LUSB Gastrointestinal: soft, non-tender, no distention, positive bowel sounds Musculoskeletal: edema present Neurological: non-focal, normal sensation, moves all 4 limbs Lymphatic: no nodes Psychiatric: normal affect, A&O x 3 Skin: no rash, normal turgor, cap refill <2 seconds Dx/Plan (1) MASTER (acute kidney injury) Code(s): N17.9 - ACUTE KIDNEY FAILURE, UNSPECIFIED Status: Acute Comment: Creatinine improved, 1.08 (2) Acute respiratory failure with hypoxia Code(s): J96.01 - ACUTE RESPIRATORY FAILURE WITH HYPOXIA Status: Acute Comment: Improving, likely due to PAH and volume overload (3) SVT (supraventricular tachycardia) Code(s): I47.1 - SUPRAVENTRICULAR TACHYCARDIA Status: Resolved Comment: Currently in sinus rhythm but tachycardic (4) Volume overload Code(s): E87.70 - FLUID OVERLOAD, UNSPECIFIED Status: Acute Qualifiers: Hypervolemia type: other Qualified Code(s): E87.79 - Other fluid overload Comment: continue po furosemide, almost euvolemic (5) Asthma Code(s): J45.909 - UNSPECIFIED ASTHMA, UNCOMPLICATED Status: Chronic Qualifiers: Asthma severity: unspecified severity Asthma persistence: intermittent Asthma complication type: uncomplicated Qualified Code(s): J45.20 - Mild intermittent asthma, uncomplicated Comment: stable (6) Pulmonary hypertension Code(s): I27.20 - PULMONARY HYPERTENSION, UNSPECIFIED Status: Chronic Comment: continue epoprostenol - Plan cont current plan of care, PT/OT, respiratory therapy, out of bed/ambulate * .
--- NOTE | 2017-07-16 13:31 | PRG ---
DATE OF SERVICE: 07/16/2017 SUBJECTIVE: The patient was seen and evaluated. No new cardiac concerns or complaints. Overall, reagan sung is feeling fairly well and does not have any complaints at the moment. OBJECTIVE: VITAL SIGNS: Most recent vital signs 97.0, pulse 102, respirations 20, oxygen saturation 91% on 3 li ters nasal cannula, blood pressure 101/61. GENERAL: Alert and oriented x3 in no acute distress. NECK: Supple, without jugular venous distention. LUNGS: Lung sounds are slightly decreased bilaterally, but otherwise clear to auscultation. HEART: Rate is regularly regular at the moment. ABDOMEN: Soft, nontender, without palpable masses. EXTREMITIES: Warm and dry to touch with 1+ pitting edema noted to bilateral lower extremities. NEUROLOGIC: Grossly intact and nonfocal. Review of telemetry and EKGs reveals a largely sinus rhythm with occasional episodes of nonsustained ventricular tachycardia, paroxysmal atrial tachycardia as well as sinus tachycardia. Largely asympto matic with her arrhythmias. LABORATORY DATA: Hematology unremarkable. Chemistry from today was reviewed and unremarkable as wel l. ASSESSMENT: 1. Recurrent atrial arrhythmias. 2. Severe pulmonary hypertension. 3. Paroxysmal atrial tachycardia. 4. Nonsustained ventricular tachycardia. 5. History of atrial septal defect closure with an Amplatzer device. 6. Chronic kidney disease. 7. History of prolonged QT. PLAN: As aforementioned, Ms. Stearns does present a fairly difficult situation given her severe lung d isease, pulmonary hypertension as well as arrhythmias. Her blood pressure continues to be borderline and medical management may cause further lowering of her blood pressure. That being said, it is not unreasonable to attempt low-dose verapamil at 40 mg b.i.d. in addition to low dose digoxin 0.125 mg daily to attempt some rate control with her multiple arrhythmias. Alternatively, low dose amiodarone of 200 mg daily could be considered. Although amiodarone is not ideal given her history of lung dis ease, a low dose therapy would likely be well tolerated without long-term complications. That being said, at this point, I would recommend initiating a low dose verapamil in addition to digoxin as ment ioned above to treat atrial arrhythmias, ventricular arrhythmias as well as her pulmonary hypertensio n.
[2017-07-16] MEDS: Furosemide 80 MG TAB PO SCH (15:30)
[2017-07-16] MEDS: Acetaminophen 500 MG TAB PO PRN (18:00)
--- NOTE | 2017-07-16 18:05 | PDOC.CTH ---
Cardiology Progress Note - Subjective She is doing better but still not to her dry weight. Her legs are still much more swollen than baseline. - Objective Vital Signs Temp Pulse Resp BP Pulse Ox 07/16/17 15:40 97.7 F 110 H 22 H 110/67 96 07/16/17 15:11 109 H 20 91 L 07/16/17 12:00 97.0 F L 102 H 20 101/61 89 L 07/16/17 11:36 99 16 91 L 07/16/17 08:00 97.5 F L 107 H 20 96 07/16/17 07:34 107 H 20 92 L 07/16/17 07:23 92 L 07/16/17 07:21 107 H 20 92 L 07/16/17 07:00 97.5 F L 96 20 113/73 96 Weight 135 lb 07/15/17 07/16/17 07/17/17 06:59 06:59 06:59 Intake Total 1600 1375 Output Total 1925 1275 Balance -325 100 - Physical Examination General/Neuro: alert & oriented x3, NAD Neck: no JVD present Lungs: other: (Mild crackles. ) Heart: RRR Abdomen: NT/ND, soft Extremities: + edema B (2+) - Telemetry Telemetry Rhythm: NSR, PVC's - Labs Result Diagrams: 07/16/17 03:54 07/16/17 03:54 Troponin/CKMB CK-MB (CK-2) 4.1 ng/mL (0-6.6) 07/10/17 21:36 Troponin I 0.177 ng/mL (< 0.028) H 07/13/17 04:43 - Assessment/Plan 1. SVT 2. Pulmonary hypertension with acute exacerbation 3. Non sustained VT PLAN: - Will increase her PO lasix to 80 mg BID. - Home soon. - Monitor for electrolyte abnormalities.
[2017-07-16] MEDS: diphenhydrAMINE 50 MG CAP PO SCH (21:22)
[2017-07-17 04:34] LABS: #Lymphocytes 0.8 thou/uL (1.20-3.40); #Monocytes 0.7 thou/uL (0.11-0.59); #Neutrophils 6.7 thou/uL (1.40-6.50); %Basophils 0.3 % (0.0-1.0); %Eosinophils 0.6 % (0.0-10.0); %Lymphocytes 9.7 % (21.0-51.0); %Monocytes 7.9 % (0.0-10.0); %Neutrophils 81.5 % (42.0-75.0); Hemoglobin 14.7 g/dL (12.0-16.0); Mean Corpuscular HGB CONC 32.2 g/dL (32.0-36.0); Mean Corpuscular Hemoglobin 31.7 pg (27.0-31.0); Mean Corpuscular Volume 98.3 fl (81.0-99.0); Platelet Count 211 thou/uL (130-400); RBC Distribution Width 13.4 % (11.5-14.5); Red Blood Cell (RBC) Count 4.64 mill/uL (4.20-5.40); White Blood Cell (WBC) Count 8.3 thou/uL (4.8-10.8)
[2017-07-17 04:49] LABS: Anion Gap 13 mmol/L (10-20); BUN (Urea Nitrogen) 26 mg/dL (9.8-20.1); Calc. Creatinine Clearance 41 mL/min (70-130); Calcium 9.3 mg/dL (7.8-10.44); Carbon Dioxide 31 mmol/L (23-31); Chloride 97 mmol/L (98-107); Estimated GFR-MDRD 43; Glucose 98 mg/dL (83-110); Magnesium 2.3 mg/dL (1.6-2.6); Potassium 4.1 mmol/L (3.5-5.1); Sodium 137 mmol/L (136-145)
[2017-07-17] MEDS: Levothyroxine Sodium 100 MCG TAB PO SCH (05:57)
[2017-07-17] MEDS: Mometasone/Formoterol 120 PUFF INHALER INH SCH (07:24)
[2017-07-17] MEDS: EPOPROSTENOL IV SCH (08:53)
[2017-07-17] MEDS: Enoxaparin Sodium 30 MG/0.3 ML SYRINGE SC SCH (08:54)
[2017-07-17] MEDS: Furosemide 80 MG TAB PO SCH (08:54)
[2017-07-17] MEDS: Spironolactone 100 MG TAB PO SCH (08:54)
--- NOTE | 2017-07-17 10:26 | PDOC.CTH ---
Cardiology Progress Note - Subjective She is doing better,. Breathing is still not at baseline She did diurese some overnight and her edema is better. - Objective Vital Signs Temp Pulse Resp BP BP Pulse Ox 07/17/17 08:00 97.5 F L 77 18 97 07/17/17 07:31 97.5 F L 77 18 117/65 97 07/17/17 07:24 91 L 07/17/17 07:22 93 18 91 L 07/17/17 04:00 97.2 F L 97 18 100/65 95 07/17/17 00:00 98.4 F 103 H 20 103/72 92 L Weight 135 lb 1.6 oz 07/16/17 07/17/17 07/18/17 06:59 06:59 06:59 Intake Total 1375 1070 Output Total 1275 1550 Balance 100 -480 - Physical Examination General/Neuro: alert & oriented x3, NAD Neck: no JVD present Lungs: other: (bilat cracles) Heart: RRR Abdomen: NT/ND Extremities: + edema B (trace) - Telemetry Telemetry Rhythm: S Tach, non sust SVT - Labs Result Diagrams: 07/17/17 04:12 07/17/17 04:12 Troponin/CKMB CK-MB (CK-2) 4.1 ng/mL (0-6.6) 07/10/17 21:36 Troponin I 0.177 ng/mL (< 0.028) H 07/13/17 04:43 - Assessment/Plan 1. SVT 2. Pulmonary hypertension with acute exacerbation 3. Non sustained VT PLAN: - Continue Lasix at 80 mg BID for the next 3 to 5 days and then she will go back to her home dose of 80mg in AM and 40 mg in PM. - Will start verapamil at very low dose 40 mg BID - May discharge home. - She has an appointment with me on Wednesday of this week and she will keep this.
[2017-07-17 11:43] VITALS: BP 101/57; TEMP 97.8
--- NOTE | 2017-07-17 16:40 | PRG ---
DATE OF SERVICE: 07/17/2017 Ms. Stearns did well overnight. She is stable on oxygen. She has no complaints, feels like she is alysa dy to go home. Lungs, heart, and abdomen are unchanged. I think it is reasonable for her to be discharged with outpatient followup with Dr. Maria later this [facility].
[2017-07-17] MEDS ORDERED: Verapamil 80 MG TAB PO SCH (21:00)
--- NOTE | 2017-07-18 23:41 | EKG ---
Test Reason : STAT Blood Pressure : / mmHG Vent. Rate : 105 BPM Atrial Rate : 105 BPM P-R Int : 120 ms QRS Dur : 138 ms QT Int : 368 ms P-R-T Axes : 069 115 -21 degrees QTc Int : 486 ms Sinus tachycardia with occasional Premature ventricular complexes Left atrial enlargement Right bundle branch block Septal infarct , age undetermined T wave abnormality, consider inferior ischemia Abnormal ECG When compared with ECG of 10-JUL-2017 21:15, (Unconfirmed) Fusion complexes are no longer Present Qgdby-Gwviayyux-Ewbfp is no longer Present Confirmed by Liz DIAZ ([id number]) on 07/18/2017 11:40:35 PM Referred By: KIP Confirmed By:Liz DIAZ
--- NOTE | 2017-07-19 14:02 | PQF ---
JOSHUA ROBINS NEWTON J MD [id number] [facility]- B02 [id number] CLINICAL DOCUMENTATION CLARIFICATION FORM: POST DISCHARGE Addendum to original discharge summary date: ____ Late entry note date: __ Please exercise your independent, professional judgment in responding to the clarification form. Clinical indicators are provided on the bottom of this form for your review Please check appropriate box(s): HEART FAILURE: A. TYPE: [ ] Systolic / HFrEF [ ] Diastolic / HFpEF [ ] Combined Systolic / Diastolic B. ACUITY [ ] Acute [ ] Acute on Chronic [ ] Chronic [ ] Other diagnosis [ ] Unable to determine In addition, please specify: Present on Admission (POA): [ ] Yes [ ] No [ ] Unable to determine For continuity of documentation, please document condition throughout progress notes and discharge summary. Thank You. CLINICAL INDICATORS - SIGNS / SYMPTOMS / LABS Ejection Fraction =UNKNOWN Dyspnea, Hypoxia Peripheral edema JVD Orthopnea / SOB / dyspnea Arrhythmia--tachycardia RISKS: PRIMARY PULMONARY ARTERIAL HYPERTENSION CKD TREATMENTS: Cardiac monitoring / telemetry IV diuretics BIPAP (This form is maintained as a part of the permanent medical record) 2014 [employer]. All Rights Reserved Mirna [phone] MTDNajma
== END 2017-07-17 12:32 | disposition home or self-care (01) | DRG 189 ==
LOC: ERS 20:28 → IMCU/EMU 22:27
PROVIDERS: ADMIT Internal Medicine; ATTEND Internal Medicine
PROC: 5A09357 Assistance with Respiratory Ventilation, Less than 24 Consecutive Hours, Continuous Positive Airway Pressure (ICD-10-PCS; principal; 2017-07-10)
DX: J96.21 Acute and chronic respiratory failure with hypoxia (principal); I27.0 Primary pulmonary hypertension; N17.9 Acute kidney failure, unspecified; I47.1 Supraventricular tachycardia; I50.813 Acute on chronic right heart failure; I45.10 Unspecified right bundle-branch block; I27.81 Cor pulmonale (chronic); N18.9 Chronic kidney disease, unspecified; Z99.81 Dependence on supplemental oxygen; J45.909 Unspecified asthma, uncomplicated; R26.81 Unsteadiness on feet; R63.0 Anorexia; Z90.49 Acquired absence of other specified parts of digestive tract; E89.0 Postprocedural hypothyroidism; Z90.710 Acquired absence of both cervix and uterus; Z86.73 Personal history of transient ischemic attack (TIA), and cerebral infarction without residual deficits; Z79.899 Other long term (current) drug therapy; Z88.1 Allergy status to other antibiotic agents; Z91.040 Latex allergy status; Z95.818 Presence of other cardiac implants and grafts
CPT/HCPCS: 36415; 71045; 80048; 80053; 82553; 82805; 83735; 83880; 84100; 84439; 84443; 84481; 84484; 85025; 85379; 87040; 90471; 90670; 93005; 93010; 93306; 93798; 94640; 94660; 96374; G0009; G8978-GP-CK; G8979-GP-CK; G8980-GP-CK; J1940; J7620

== ENCOUNTER 2017-08-07 17:47 | Inpatient (IN) | payer MEDICARE ==
[2017-08-07 18:19] LABS: #Lymphocytes 1.1 thou/uL (1.20-3.40); #Monocytes 1.4 thou/uL (0.11-0.59); #Neutrophils 13.9 thou/uL (1.40-6.50); %Basophils 0.2 % (0.0-1.0); %Eosinophils 0.3 % (0.0-10.0); %Lymphocytes 6.9 % (21.0-51.0); %Monocytes 8.4 % (0.0-10.0); %Neutrophils 84.2 % (42.0-75.0); Hemoglobin 16.3 g/dL (12.0-16.0); Mean Corpuscular HGB CONC 36.8 g/dL (32.0-36.0); Mean Corpuscular Hemoglobin 35.6 pg (27.0-31.0); Mean Corpuscular Volume 96.7 fL (78.0-98.0); Mean Platelet Volume 7.3 fL (7.4-10.4); Platelet Count 246 thou/uL (130-400); RBC Distribution Width 14.1 % (11.5-14.5); Red Blood Cell (RBC) Count 4.58 mill/uL (4.20-5.40); White Blood Cell (WBC) Count 16.5 thou/uL (4.8-10.8)
[2017-08-07 18:32] LABS: ALT (SGPT) 32 U/L (8-55); AST (SGOT) 33 U/L (5-34); Albumin 4.5 g/dL (3.4-4.8); Alkaline Phosphatase 81 U/L (40-150); BUN (Urea Nitrogen) 84 mg/dL (9.8-20.1); Bilirubin, Total 3.5 mg/dL (0.2-1.2); Calc. Creatinine Clearance 0 mL/min (70-130); Calcium 10.2 mg/dL (7.8-10.44); Estimated GFR-MDRD 30; Globulin 2.7 g/dL (2.4-3.5); Glucose 116 mg/dL (83-110); Protein, Total 7.2 g/dL (6.0-8.3)
[2017-08-07 18:41] LABS: Potassium 3.2 mmol/L (3.5-5.1); Sodium 134 mmol/L (136-145)
[2017-08-07 18:44] LABS: Anion Gap 28 mmol/L (10-20); Carbon Dioxide 35 mmol/L (23-31)
--- NOTE | 2017-08-07 18:45 | CT ---
CT OF THE BRAIN WITHOUT CONTRAST: 08/07/17 COMPARISON: None. HISTORY: Unwitnessed fall at home. The patient hit her head per the family. TECHNIQUE: Multiple contiguous axial images were obtained in a CT of the brain without contrast. FINDINGS: There are a few scattered hypodensities in the subcortical and periventricular white matter, likely s econdary to small vessel ischemic disease. No large confluent infarction is seen. There is no evidenc e of hydrocephalus, intracranial hemorrhage or extra-axial fluid collection. The calvarium and overlying soft tissues are unremarkable. The visualized paranasal sinuses and masto id air cells are well aerated. IMPRESSION: No evidence of acute intracranial abnormality. POS: [facility]
[2017-08-07 18:47] LABS: Chloride 74 mmol/L (98-107)
[2017-08-07 18:48] LABS: CKMB 2.7 ng/mL (0-6.6)
--- NOTE | 2017-08-07 20:08 | RAD ---
TWO VIEWS OF THE RIGHT HUMERUS: 08/07/17 COMPARISON: None. HISTORY: Unwitnessed fall at home with right arm pain. FINDINGS: Two views of the right humerus shows no evidence of acute fracture or dislocation. No degenerative ch anges are seen. No soft tissue swelling is present. IMPRESSION: Unremarkable exam. POS: [facility]
--- NOTE | 2017-08-07 20:10 | RAD ---
SINGLE VIEW OF THE CHEST: 08/07/17 COMPARISON: 07/10/17 HISTORY: Unwitnessed fall at home. The patient hit head per family. FINDINGS: Single view of the chest shows an enlarged but stable cardiomediastinal silhouette. Bilateral perihil ar fullness is stable. There may be a small left pleural effusion. There is scoliotic curvature and d egenerative changes are seen in the spine. IMPRESSION: Stable exam. POS: [facility]
[2017-08-07] MEDS ORDERED: Fentanyl 100 MCG/2 ML VIAL ONE (20:19)
[2017-08-07] MEDS ORDERED: Ondansetron ODT 4 MG TAB ONE (20:20)
[2017-08-07 21:37] LABS: Bilirubin Negative (Negative); Blood, Urine Negative (Negative); Clarity CLEAR (Clear); Glucose, Urine (Dipstick) Negative (Negative); Leukocyte Negative (Negative); Nitrite Negative (Negative); Protein, Urine (Dipstick) 30 mg/dL (Neg-Trace); Specific Gravity, Urine 1.011 (1.002-1.036); pH, Urine 6.5 (5.0-9.0)
[2017-08-07 21:42] LABS: Bacteria/HPF None Seen HPF (None Seen); Hyaline Casts/LPF 4-6 HYALINE CAST LPF (0-3 Hyaline); Pathc Cast-AUWi Flag 0.58 (0-2.49); RBC/HPF 0-3 HPF (0-3); Squamous Epithelial 0-3 HPF (0-3); WBC/HPF None Seen HPF (0-3)
[2017-08-07] MEDS ORDERED: Adacel (T-DAP) 0.5 ML VIAL ONE (21:49)
[2017-08-07 22:10] LABS: Critical Call Chem Troponin I RESULT DECREASING; Troponin I 0.522 ng/mL (< 0.028)
[2017-08-07] MEDS ORDERED: Ondansetron HCl/PF 4 MG/2 ML Vial IVP PRN (22:18)
[2017-08-08] MEDS ORDERED: OXYGEN NASAL SCH (00:15)
[2017-08-08] MEDS ORDERED: Lactated Ringer's 1,000 ML IV SCH (00:45)
[2017-08-08 00:59] LABS: Critical Call Chem Troponin I RESULT DECREASING; Troponin I 0.471 ng/mL (< 0.028)
[2017-08-08] MEDS: Levothyroxine Sodium 100 MCG TAB PO SCH (05:34)
[2017-08-08 06:04] LABS: Anion Gap 18 mmol/L (10-20); BUN (Urea Nitrogen) 83 mg/dL (9.8-20.1); Calc. Creatinine Clearance 24 mL/min (70-130); Carbon Dioxide 37 mmol/L (23-31); Chloride 78 mmol/L (98-107); Estimated GFR-MDRD 32; Glucose 103 mg/dL (83-110); Potassium 3.8 mmol/L (3.5-5.1); Sodium 129 mmol/L (136-145)
[2017-08-08] MEDS ORDERED: Mometasone/Formoterol 120 PUFF INHALER INH PRN (06:30)
[2017-08-08] MEDS: Mometasone/Formoterol 120 PUFF INHALER INH SCH ×2 (06:52→19:08)
[2017-08-08 07:29] LABS: #Lymphocytes 1.1 thou/uL (1.20-3.40); #Monocytes 1.4 thou/uL (0.11-0.59); #Neutrophils 11.9 thou/uL (1.40-6.50); %Basophils 0.2 % (0.0-1.0); %Eosinophils 0.2 % (0.0-10.0); %Lymphocytes 7.7 % (21.0-51.0); %Monocytes 9.7 % (0.0-10.0); %Neutrophils 82.3 % (42.0-75.0); Hemoglobin 13.5 g/dL (12.0-16.0); Mean Corpuscular HGB CONC 33.9 g/dL (32.0-36.0); Mean Corpuscular Hemoglobin 32.7 pg (27.0-31.0); Mean Corpuscular Volume 96.3 fL (78.0-98.0); Mean Platelet Volume 7.3 fL (7.4-10.4); Platelet Count 255 thou/uL (130-400); RBC Distribution Width 14.1 % (11.5-14.5); Red Blood Cell (RBC) Count 4.14 mill/uL (4.20-5.40); White Blood Cell (WBC) Count 14.5 thou/uL (4.8-10.8)
[2017-08-08] MEDS ORDERED: Loperamide HCl 2 MG CAP PO PRN (07:42)
[2017-08-08] MEDS ORDERED: Artificial Tears 18 DROP/0.9 ML EA EYE PRN (07:42)
[2017-08-08] MEDS ORDERED: Ondansetron ODT 4 MG TAB PO PRN (07:42)
[2017-08-08] MEDS ORDERED: Loratadine 10 MG TAB PO PRN (07:42)
[2017-08-08] MEDS ORDERED: Sodium Chloride 0.65% Nasal 44 ML BOT EA NARE PRN (07:42)
[2017-08-08] MEDS ORDERED: Diabetic Tussin 200 MG/10 ML UDCUP PO PRN (07:42)
[2017-08-08] MEDS ORDERED: hydrALAZINE 20 MG/ML VIAL SLOW IVP PRN (07:42)
[2017-08-08] MEDS ORDERED: Chloraseptic Spray 180 ml Bottle PO PRN (07:42)
[2017-08-08] MEDS ORDERED: Milk Of Magnesia 30 ML UDCUP PO PRN (07:42)
[2017-08-08] MEDS ORDERED: Eucerin (Mineral Oil/Petrolatum,White) 30 gm Jar TOP PRN (07:42)
[2017-08-08] MEDS ORDERED: Mag-Al 1200 mg/1200 mg/30 ML UDCUP PO PRN (07:42)
[2017-08-08] MEDS ORDERED: Senokot 8.6 MG TAB PO PRN (07:42)
[2017-08-08] MEDS: Bumetanide 1 MG TAB PO SCH (08:28)
[2017-08-08] MEDS: Spironolactone 100 MG TAB PO SCH ×2 (08:29→20:34)
[2017-08-08] MEDS: Enoxaparin Sodium 30 MG/0.3 ML SYRINGE SC SCH (08:29)
[2017-08-08] MEDS: Famotidine 20 MG TAB PO SCH (08:29)
[2017-08-08] MEDS: Digoxin 0.25 MG TAB PO SCH (08:29)
[2017-08-08] MEDS ORDERED: EPOPROSTENOL SODIUM IV SCH (09:00)
[2017-08-08] MEDS ORDERED: Verapamil 80 MG TAB PO SCH (09:00)
--- NOTE | 2017-08-08 10:11 | PDOC.PN ---
- Subjective Encounter Start Date: 08/08/17 Encounter Start Time: 08:00 -: old records requested/rev Patient seen and examined for elevated troponin, she feels groggy, no chest pain , has on and off dizziness. No new complaints. No overnight events - Objective Resuscitation Status: Resuscitation Status FULL:Full Resuscitation MAR Reviewed: Yes Vital Signs & Weight: Vital Signs (12 hours) Temp Pulse Resp BP Pulse Ox 08/08/17 08:29 83 08/08/17 08:00 98 F 93 18 113/58 L 93 L 08/08/17 06:56 95 08/08/17 06:52 94 16 95 08/08/17 03:46 97.8 F 92 20 93/57 L 95 08/07/17 23:00 97.6 F 88 17 102/55 L 92 L Weight Weight 105 lb 5 oz I&O: 08/07/17 08/08/17 08/09/17 06:59 06:59 06:59 Intake Total 300 Output Total 400 Balance -100 Result Diagrams: 08/08/17 04:42 08/08/17 04:42 Radiology Reviewed by me: Yes EKG Reviewed by me: Yes (nsr) Phys Exam - Physical Examination Constitutional: NAD HEENT: PERRLA, moist MMs, sclera anicteric Neck: no JVD, supple Respiratory: no wheezing, no rales, no rhonchi reduced air entry Cardiovascular: irregular SM+ Gastrointestinal: soft, non-tender, no distention, positive bowel sounds Musculoskeletal: no edema, pulses present Neurological: moves all 4 limbs Psychiatric: normal affect Deviation from normal: bruise noted Dx/Plan (1) Acute kidney failure Status: Acute (2) Elevated troponin Code(s): R74.8 - ABNORMAL LEVELS OF OTHER SERUM ENZYMES Status: Acute (3) Fall Code(s): W19.XXXA - UNSPECIFIED FALL, INITIAL ENCOUNTER Status: Acute (4) Hypochloremia Code(s): E87.8 - OTH DISORDERS OF ELECTROLYTE AND FLUID BALANCE, NEC Status: Acute (5) Hypokalemia Code(s): E87.6 - HYPOKALEMIA Status: Acute (6) Hyponatremia Code(s): E87.1 - HYPO-OSMOLALITY AND HYPONATREMIA Status: Acute (7) Asthma Code(s): J45.909 - UNSPECIFIED ASTHMA, UNCOMPLICATED Status: Chronic Qualifiers: Asthma severity: unspecified severity Asthma persistence: intermittent Asthma complication type: uncomplicated Qualified Code(s): J45.20 - Mild intermittent asthma, uncomplicated Comment: stable (8) Chronic respiratory failure with hypoxia, on home O2 therapy Code(s): J96.11 - CHRONIC RESPIRATORY FAILURE WITH HYPOXIA; Z99.81 - DEPENDENCE ON SUPPLEMENTAL OXYGEN Status: Chronic (9) H/O Amplatzer atrial septal defect closure Code(s): Z87.74 - PERSONAL HISTORY OF CONGENITAL MALFORM OF HEART AND CIRC SYS Status: Chronic (10) Hypothyroidism Code(s): E03.9 - HYPOTHYROIDISM, UNSPECIFIED Status: Chronic (11) Protein-calorie malnutrition, moderate Code(s): E44.0 - MODERATE PROTEIN-CALORIE MALNUTRITION Status: Chronic (12) Pulmonary hypertension Code(s): I27.20 - PULMONARY HYPERTENSION, UNSPECIFIED Status: Chronic Comment: continue epoprostenol (13) Severe tricuspid regurgitation by prior echocardiogram Code(s): I07.1 - RHEUMATIC TRICUSPID INSUFFICIENCY Status: Chronic - Plan cont current plan of care, plan discussed w/ family, PT/OT * continue IVF and will not restart another bag to prevent fluid overload * oral intake advised * nutritional support * cardiology consulted * medication reviewed as below * symptomatic treatment * discussed with family * monitor labs. Review of Systems - Review of Systems Constitutional: weakness. negative: fever, chills, sweats, malaise, other ENT: negative: Ear Pain, Ear Discharge, Nose Pain, Nose Discharge, Nose Congestion, Mouth Pain, Mouth Swelling, Throat Pain, Throat Swelling, Other Respiratory: negative: Cough, Dry, Shortness of Breath, Hemoptysis, SOB with Excertion, Pleuritic Pain, Sputum, Wheezing Cardiovascular: light headedness. negative: chest pain, palpitations, orthopnea , paroxysmal nocturnal dyspnea, edema, other Gastrointestinal: negative: Nausea, Vomiting, Abdominal Pain, Diarrhea, Constipation, Melena, Hematochezia, Other Genitourinary: negative: Dysuria, Frequency, Incontinence, Hematuria, Retention , Other Musculoskeletal: negative: Neck Pain, Shoulder Pain, Arm Pain, Back Pain, Hand Pain, Leg Pain, Foot Pain, Other Skin: Bruising. negative: Rash, Lesions, Eddi, Other - Medications/Allergies Allergies/Adverse Reactions: Allergies Allergy/AdvReac Type Severity Reaction Status Date / Time adhesive Allergy Short of Verified 06/24/18 08:26 Breath vancomycin Allergy Verified 08/07/17 23:41 Medications: Current Medications Acetaminophen (Tylenol) 650 mg PO Q4H PRN PRN Reason: Headache/Fever or Pain Al Hydroxide/Mg Hydroxide (Maalox) 15 ml PO Q4H PRN PRN Reason: Heartburn or Indigestion Artificial Tears (Tears Naturale) 0 drop EA EYE PRN PRN PRN Reason: Dry Eyes Bumetanide (Bumex) 2 mg PO DAILY [facility] Last Admin: 08/08/17 08:28 Dose: 2 mg Digoxin (Lanoxin) 0.25 mg PO DAILY [facility] Last Admin: 08/08/17 08:29 Dose: 0.25 mg Diphenhydramine HCl (Benadryl) 50 mg PO HS [facility] Enoxaparin Sodium (Lovenox) 30 mg SC 0900 [facility] Last Admin: 08/08/17 08:29 Dose: 30 mg Famotidine (Pepcid) 20 mg PO DAILY [facility] Last Admin: 08/08/17 08:29 Dose: 20 mg Guaifenesin (Robitussin Sf) 200 mg PO Q4H PRN PRN Reason: Cough Hydralazine HCl (Apresoline) 10 mg SLOW IVP Q4H PRN PRN Reason: Systolic BP > 180 Lactated Ringer's (Lactated Ringer's) 1,000 mls @ 70 mls/hr IV .[id number] [facility] Levothyroxine Sodium (Synthroid) 100 mcg PO 0600 [facility] Last Admin: 08/08/17 05:34 Dose: 100 mcg Loperamide HCl (Imodium) 2 mg PO PRN PRN PRN Reason: Diarrhea/Loose Stools Loratadine (Claritin) 10 mg PO DAILYPRN PRN PRN Reason: Sinus Symptoms Magnesium Hydroxide (Milk Of Magnesium) 30 ml PO DAILYPRN PRN PRN Reason: Constipation Mineral Oil/White Petrolatum (Eucerin Cream) 0 gm TOP BIDPRN PRN PRN Reason: Dry Skin Mometasone Furoate/Formoterol Fumar (Dulera 200 Mcg/5 Mcg Inhaler) 1 puff INH BID-RT [facility] Last Admin: 08/08/17 06:52 Dose: 1 puff Mometasone Furoate/Formoterol Fumar (Dulera 100 Mcg/5 Mcg Inhaler) 1 puff INH BID-RT PRN PRN Reason: Cough Ondansetron HCl (Zofran) 4 mg IVP Q6H PRN PRN Reason: Nausea/Vomiting Ondansetron HCl (Zofran Odt) 4 mg PO Q6H PRN PRN Reason: Nausea/Vomiting Epoprostenol Sodium (1.5 Mg) 0 each IV 2100 [place] Phenol (Chloraseptic [place] 180 Ml Bot) 0 ml PO PRN PRN PRN Reason: Sore Throat Senna (Senokot) 2 tab PO HSPRN PRN PRN Reason: Constipation Sodium Chloride ([place] Nasal [place] 0.65%) 0 ml EA NARE QIDPRN PRN PRN Reason: Nasal Congestion Sodium Chloride (Flush - Normal Saline) 10 ml IVF Q12HR [facility] Last Admin: 08/08/17 08:30 Dose: Not Given Sodium Chloride (Flush - Normal Saline) 10 ml IVF PRN PRN PRN Reason: Saline Flush Spironolactone (Aldactone) 100 mg PO BID [facility] Last Admin: 08/08/17 08:29 Dose: 100 mg
[2017-08-08] MEDS: Lactated Ringer's 1,000 ML IV SCH (13:05)
--- NOTE | 2017-08-08 13:44 | CON ---
DATE OF CONSULTATION: 08/08/2017 REASON FOR CONSULTATION: Syncope. PRIMARY LEAN MANUFACTURING LEADER: Aneudy Monzon M.D. HISTORY OF PRESENT ILLNESS: Ms. Stearns is a very pleasant 72-year-old woman who recently was admitted on 07/13/2017 for edema. She was placed on Lasix. She states her baseline weight was 130. Yesterd ay, she weighed 107 pounds. She states she walked to the kitchen and fell. She does not recall the event. She was found down. The witness does state she was confused. EMS was then summoned. Currently, she has no complaints. She does have ecchymosis noted to the right side of her face in ad dition to ecchymosis to the right arm. No chest pain or pressure noted. PAST MEDICAL HISTORY: Severe pulmonary hypertension, followed by Dr. Bruno at [facility]. PAST SURGICAL HISTORY: Cataract surgery, femoral line placement, appendectomy, cholecystectomy, thyr oidectomy, hysterectomy. HOME MEDICATIONS: Include Lasix 40 q.a.m., Aldactone, levothyroxine, Lasix, Benadryl. ALLERGIES: LATEX. SOCIAL HISTORY: No current tobacco or alcohol use. REVIEW OF SYSTEMS: Ten-point review of systems is reviewed and as above, otherwise negative. PHYSICAL EXAMINATION: GENERAL: The patient is a pleasant female who is in no acute distress. The patient appears her stat ed age. VITAL SIGNS: Blood pressure 138/58, pulse 93, temperature 98. NEUROLOGIC: The patient is alert and oriented times 3 with no focal neurologic deficits. HEENT: Sclerae without icterus. Mouth has moist mucous membranes with normal pallor. Ecchymoses no jamie to the right side of her face. NECK: No JVD. Carotid upstroke brisk. No bruits bilaterally. LUNGS: Clear to auscultation with unlabored respirations. BACK: No scoliosis or kyphosis. CARDIAC: 3/6 systolic ejection murmur, felt to be holosystolic. ABDOMEN: Soft, nontender, nondistended. No peritoneal signs present. No hepatosplenomegaly. No ab normal striae. EXTREMITIES: 2+ femoral and 2+ dorsalis pedis pulses. No cyanosis, clubbing, or edema. SKIN: No gross abnormalities. PERTINENT LABS: Hemoglobin 13.5. Peak troponin 0.5-2 that is up from baseline of 0.1. IMPRESSION: 1. Syncope. 2. Severe pulmonary hypertension. RECOMMENDATIONS: Ms. Stearns is likely prerenal. She has lost almost 30 pounds in the last 1 month. Her creatinine is also elevated at 1.6 with a BUN of 83. At this point, we would continue with slow IV fluids. She appears currently stable. I am unsure whether she has had any cardiac workup. She s tates she has had multiple heart catheterizations, but likely a right-sided cath noted in [place]. T here is no angio performed at [facility]. Further recommendations per Dr. Aneudy Monzon in a.m.
--- NOTE | 2017-08-08 18:04 | HP ---
PRIMARY CARE PHYSICIAN: Dr. Maria. CODE STATUS: FULL CODE. TIME OF EVALUATION: 2129. CHIEF COMPLAINT: Status post fall, syncope. HISTORY OF PRESENT ILLNESS: This is a 72-year-old female patient with past medical history of stroke, pulmonary hypertension, heart murmur, CHF, came to the hospital after having an episode of fall, she was alone in the kitchen when she fall. The patient does not recall what happened, only event that she recall before falling is that she was going to the kitchen to do something, then she does not remember anything else. The daughter found her on the floor, after a few minutes, the patient has a hematoma on the right periorbital area, the patient has recovered completely mentally in about 1 hour, and at the same way she has been recovering the memory about what happened, that was not very clear on the initial presentation. The patient has had no these problems in the past. She does have a history of CHF, follows with Dr. Monzon for this reason. As noted, she was recently in the hospital, she had been given a diuresis. She has lost a significant amount of weight in the past few weeks due to diuresis. She believes that this might be related to her current presentation. The symptoms have improved, There is no clear trigger, we will place the patient on the monitor, troponin has been intermediate 0.5. We will consult Dr. Monzon in the morning for reevaluation and further management. REVIEW OF SYSTEMS: Constitutional: No fever, no chills, generalized weakness. Respiratory: No cough, no sputum production. Cardiovascular: No chest pain or palpitation. The patient has no shortness of breath. Gastrointestinal: No nausea, no vomiting, no diarrhea, no abdominal pain. RESEARCH SOFTWARE ENGINEER: The patient has syncope, no dizziness, headache, not feeling lightheaded. Genitourinary: No burning with urination. Extremities: No leg swelling. All other systems were negative except for the findings mentioned in the HPI. PAST MEDICAL HISTORY: The patient has a history of pulmonary hypertension, stroke, heart murmur, CHF. PAST SURGICAL HISTORY: Thyroidectomy, heart catheterization, appendectomy, cholecystectomy. PSYCHIATRIC HISTORY: No previous psychiatric history. SOCIAL HISTORY: The patient denies alcohol use. No drugs. No smoking history. FAMILY HISTORY: The patient has a father with history of cancer. ALLERGIES: VANCOMYCIN. REPORTED MEDICATION: Synthroid 25 mcg orally 1 tablet a day. PHYSICAL EXAMINATION: VITAL SIGNS: On presentation 105/53, heart rate 83, respiratory rate 16, temperature 97.8, oxygen saturation 95 on room air. GENERAL: The patient is alert, oriented, not in any acute distress. HEENT: Eyes, the patient has a right periorbital hematoma secondary to trauma, moist oral mucosa, anicteric. NECK: No JVD. RESPIRATORY: Bilateral air entry. No rales, no wheezing. Symmetric expansion. CARDIOVASCULAR: Normal rate, regular rhythm with a systolic murmur in the ____ _ rregular rhythm, no gallop, no edema. ABDOMEN: Soft, normal bowel sounds. MUSCULOSKELETAL: Baseline range of motion and strength. No tenderness. SKIN: Warm and intact. No pallor, no rash, no redness. NEUROLOGIC: Baseline sensorium. No evidence of any new focal weakness. Baseline speech. Cranial nerves sensory intact. PSYCHIATRIC: Good mood. No anxiety, oriented, optimal judgment. LABORATORY DATA: Reviewed. The patient has white count 16, hemoglobin 16 with hematocrit 44, platelet count 146. Sodium 134, potassium 3.2, carbon dioxide 35 , anion gap 28, BUN 84, creatinine 1.6. GFR 30, glucose 116, total bilirubin 3.5. Troponin initially 0.56, 2nd one 0.52. The urine was done and was negative. The patient has a humerus x-ray that show unremarkable exam. The patient had a chest x-ray that showed stable exam. The patient had a brain CT that was reported as no evidence of acute intracranial abnormalities. EKG was discussed with performing physician from ER. The patient has normal sinus rhythm, incomplete right BBB. T waves are normal, no evidence of any acute ischemic event, the patient does have occasional PVCs on the monitor. ASSESSMENT AND PLAN: The patient will be placed in the hospital following medical conditions. 1. Dehydration. The patient has a very high white count and hemoglobin, high bun/cr. Carbon dioxide 35, she has contraction alkalosis, the patient might benefit from some fluids, we will give with caution given history of congestive heart failure, this might be secondary to over diuresis. We will monitor labs in the morning. There is no evidence of any kidney infection at this point. 2. Syncope, could be related to hypovolemia, the patient follows with Dr. Monzon and has been consulted given also increasing troponins. 3. Positive troponin 0.5 x2, no other evidence for acute coronary syndrome, this could be secondary to a [id number] myocardial infarction type 2, especially in the event of acute kidney injury. We will trend troponins. We will treat accordingly. Dr. Monzon has been consulted. we will follow recs. Reconciled home medications. 4. Acute kidney injury. The patient has a creatinine of 1.6. In previous visit, it was 1.1. This is likely secondary to acute over diuresis, we will hydrate, we will monitor kidney function, , we will treat accordingly. 5. Hyponatremia, acute hypokalemia and hypochloremia, this is likely secondary to diuresis, monitor levels, we will replace electrolytes as needed. 6. Contraction alkalosis, with CO2 35, this is likely secondary to dehydration from over diuresis.teatment as above. 7. Hyperglycemia of 116, this is mild, we will monitor, we will treat accordingly. 8. Acute encephalopathy, the patient has change in mental status it took for about one hour for it to get better, this likely secondary to syncope, we will monitor, we will treat accordingly. no other neurological symptoms. 9. Deep venous thrombosis prophylaxis. MTDD
[2017-08-08] MEDS: diphenhydrAMINE 50 MG CAP PO SCH (20:33)
[2017-08-09] MEDS: EPOPROSTENOL SODIUM IV SCH ×2 (00:40→20:24)
[2017-08-09] MEDS: Levothyroxine Sodium 100 MCG TAB PO SCH (05:57)
[2017-08-09] MEDS: Lactated Ringer's 1,000 ML IV SCH (05:58)
[2017-08-09] MEDS: Mometasone/Formoterol 120 PUFF INHALER INH SCH ×2 (07:19→19:56)
[2017-08-09] MEDS: Bumetanide 1 MG TAB PO SCH (08:40)
[2017-08-09] MEDS: Digoxin 0.25 MG TAB PO SCH (08:40)
[2017-08-09] MEDS: Famotidine 20 MG TAB PO SCH (08:40)
[2017-08-09] MEDS: Spironolactone 100 MG TAB PO SCH ×2 (08:41→20:23)
[2017-08-09] MEDS: Enoxaparin Sodium 30 MG/0.3 ML SYRINGE SC SCH (08:41)
--- NOTE | 2017-08-09 09:17 | PDOC.PN ---
- Subjective Encounter Start Date: 08/09/17 Encounter Start Time: 08:00 Patient seen and examined for acute kidney injury. No new complaints. No overnight events - Objective Resuscitation Status: Resuscitation Status FULL:Full Resuscitation MAR Reviewed: Yes Vital Signs & Weight: Vital Signs (12 hours) Temp Pulse Resp BP Pulse Ox 08/09/17 07:21 97 08/09/17 07:19 97 16 97 08/09/17 03:47 96.3 F L 92 16 97/50 L 96 08/09/17 03:03 94 L 08/08/17 23:47 97.5 F L 90 17 103/53 L 94 L Weight Weight 109 lb 4 oz I&O: 08/08/17 08/09/17 08/10/17 06:59 06:59 06:59 Intake Total 300 2700 Output Total 400 2300 Balance -100 400 Result Diagrams: 08/08/17 04:42 08/08/17 04:42 EKG Reviewed by me: Yes Phys Exam - Physical Examination Constitutional: NAD HEENT: PERRLA, moist MMs, sclera anicteric Neck: no JVD, supple Respiratory: no wheezing, no rhonchi Cardiovascular: RRR, no rub SM+ parasternal Gastrointestinal: soft, non-tender, no distention, positive bowel sounds Musculoskeletal: no edema, pulses present Neurological: non-focal, normal sensation Lymphatic: no nodes Psychiatric: normal affect Skin: no rash, normal turgor Dx/Plan (1) Acute kidney failure Status: Acute (2) Elevated troponin Code(s): R74.8 - ABNORMAL LEVELS OF OTHER SERUM ENZYMES Status: Acute (3) Fall Code(s): W19.XXXA - UNSPECIFIED FALL, INITIAL ENCOUNTER Status: Acute (4) Hypochloremia Code(s): E87.8 - OTH DISORDERS OF ELECTROLYTE AND FLUID BALANCE, NEC Status: Acute (5) Hypokalemia Code(s): E87.6 - HYPOKALEMIA Status: Acute (6) Hyponatremia Code(s): E87.1 - HYPO-OSMOLALITY AND HYPONATREMIA Status: Acute (7) Asthma Code(s): J45.909 - UNSPECIFIED ASTHMA, UNCOMPLICATED Status: Chronic Qualifiers: Asthma severity: unspecified severity Asthma persistence: intermittent Asthma complication type: uncomplicated Qualified Code(s): J45.20 - Mild intermittent asthma, uncomplicated Comment: stable (8) Chronic respiratory failure with hypoxia, on home O2 therapy Code(s): J96.11 - CHRONIC RESPIRATORY FAILURE WITH HYPOXIA; Z99.81 - DEPENDENCE ON SUPPLEMENTAL OXYGEN Status: Chronic (9) H/O Amplatzer atrial septal defect closure Code(s): Z87.74 - PERSONAL HISTORY OF CONGENITAL MALFORM OF HEART AND CIRC SYS Status: Chronic (10) Hypothyroidism Code(s): E03.9 - HYPOTHYROIDISM, UNSPECIFIED Status: Chronic (11) Protein-calorie malnutrition, moderate Code(s): E44.0 - MODERATE PROTEIN-CALORIE MALNUTRITION Status: Chronic (12) Pulmonary hypertension Code(s): I27.20 - PULMONARY HYPERTENSION, UNSPECIFIED Status: Chronic Comment: continue epoprostenol (13) Severe tricuspid regurgitation by prior echocardiogram Code(s): I07.1 - RHEUMATIC TRICUSPID INSUFFICIENCY Status: Chronic - Plan cont current plan of care, PT/OT * cardiology recommendation noted, dr bautista to see today * continue gentle IVF * repeat labs today * medication reviewed as below * symptomatic treatment * PT/OT. Review of Systems - Review of Systems ENT: negative: Ear Pain, Ear Discharge, Nose Pain, Nose Discharge, Nose Congestion, Mouth Pain, Mouth Swelling, Throat Pain, Throat Swelling, Other Respiratory: negative: Cough, Dry, Shortness of Breath, Hemoptysis, SOB with Excertion, Pleuritic Pain, Sputum, Wheezing Cardiovascular: negative: chest pain, palpitations, orthopnea, paroxysmal nocturnal dyspnea, edema, light headedness, other Gastrointestinal: negative: Nausea, Vomiting, Abdominal Pain, Diarrhea, Constipation, Melena, Hematochezia, Other Genitourinary: negative: Dysuria, Frequency, Incontinence, Hematuria, Retention , Other Musculoskeletal: negative: Neck Pain, Shoulder Pain, Arm Pain, Back Pain, Hand Pain, Leg Pain, Foot Pain, Other Skin: Bruising. negative: Rash, Lesions, Eddi, Other - Medications/Allergies Allergies/Adverse Reactions: Allergies Allergy/AdvReac Type Severity Reaction Status Date / Time adhesive Allergy Short of Verified 08/08/17 08:26 Breath vancomycin Allergy Verified 08/07/17 23:41 Medications: Current Medications Acetaminophen (Tylenol) 650 mg PO Q4H PRN PRN Reason: Headache/Fever or Pain Al Hydroxide/Mg Hydroxide (Maalox) 15 ml PO Q4H PRN PRN Reason: Heartburn or Indigestion Artificial Tears (Tears Naturale) 0 drop EA EYE PRN PRN PRN Reason: Dry Eyes Bumetanide (Bumex) 2 mg PO DAILY [facility] Last Admin: 08/09/17 08:40 Dose: 2 mg Digoxin (Lanoxin) 0.25 mg PO DAILY [facility] Last Admin: 08/09/17 08:40 Dose: 0.25 mg Diphenhydramine HCl (Benadryl) 50 mg PO HS [facility] Last Admin: 08/08/17 20:33 Dose: Not Given Enoxaparin Sodium (Lovenox) 30 mg SC 0900 [facility] Last Admin: 08/09/17 08:41 Dose: 30 mg Famotidine (Pepcid) 20 mg PO DAILY [facility] Last Admin: 08/09/17 08:40 Dose: 20 mg Guaifenesin (Robitussin Sf) 200 mg PO Q4H PRN PRN Reason: Cough Hydralazine HCl (Apresoline) 10 mg SLOW IVP Q4H PRN PRN Reason: Systolic BP > 180 Lactated Ringer's (Lactated Ringer's) 1,000 mls @ 70 mls/hr IV .[id number] [facility] Last Admin: 08/09/17 05:58 Dose: 1,000 mls Levothyroxine Sodium (Synthroid) 100 mcg PO 0600 [facility] Last Admin: 08/09/17 05:57 Dose: 100 mcg Loperamide HCl (Imodium) 2 mg PO PRN PRN PRN Reason: Diarrhea/Loose Stools Loratadine (Claritin) 10 mg PO DAILYPRN PRN PRN Reason: Sinus Symptoms Magnesium Hydroxide (Milk Of Magnesium) 30 ml PO DAILYPRN PRN PRN Reason: Constipation Mineral Oil/White Petrolatum (Eucerin Cream) 0 gm TOP BIDPRN PRN PRN Reason: Dry Skin Mometasone Furoate/Formoterol Fumar (Dulera 200 Mcg/5 Mcg Inhaler) 1 puff INH BID-RT [facility] Last Admin: 08/09/17 07:19 Dose: 1 puff Mometasone Furoate/Formoterol Fumar (Dulera 100 Mcg/5 Mcg Inhaler) 1 puff INH BID-RT PRN PRN Reason: Cough Ondansetron HCl (Zofran) 4 mg IVP Q6H PRN PRN Reason: Nausea/Vomiting Ondansetron HCl (Zofran Odt) 4 mg PO Q6H PRN PRN Reason: Nausea/Vomiting Epoprostenol Sodium (1.5 Mg) 0 each IV 2100 [facility] Last Admin: 08/09/17 00:40 Dose: 1 each Phenol (Chloraseptic [place] 180 Ml Bot) 0 ml PO PRN PRN PRN Reason: Sore Throat Senna (Senokot) 2 tab PO HSPRN PRN PRN Reason: Constipation Sodium Chloride ([place] Nasal [place] 0.65%) 0 ml EA NARE QIDPRN PRN PRN Reason: Nasal Congestion Sodium Chloride (Flush - Normal Saline) 10 ml IVF Q12HR [facility] Last Admin: 08/09/17 08:41 Dose: Not Given Sodium Chloride (Flush - Normal Saline) 10 ml IVF PRN PRN PRN Reason: Saline Flush Spironolactone (Aldactone) 100 mg PO BID [facility] Last Admin: 08/09/17 08:41 Dose: 100 mg
[2017-08-09 09:52] LABS: ALT (SGPT) 31 U/L (8-55); AST (SGOT) 29 U/L (5-34); Albumin 3.6 g/dL (3.4-4.8); Alkaline Phosphatase 65 U/L (40-150); BUN (Urea Nitrogen) 73 mg/dL (9.8-20.1); Bilirubin, Total 2.7 mg/dL (0.2-1.2); Calc. Creatinine Clearance 28 mL/min (70-130); Calcium 9.1 mg/dL (7.8-10.44); Estimated GFR-MDRD 35; Globulin 1.9 g/dL (2.4-3.5); Glucose 193 mg/dL (83-110); Magnesium 1.7 mg/dL (1.6-2.6); Phosphorus 2.8 mg/dL (2.3-4.7); Protein, Total 5.5 g/dL (6.0-8.3)
[2017-08-09 09:58] LABS: Carbon Dioxide Greater than 37 mmol/L (23-31); Chloride 78 mmol/L (98-107); Potassium 2.6 mmol/L (3.5-5.1); Sodium 131 mmol/L (136-145)
[2017-08-09 10:06] LABS: #Eosinphils 0.1 thou/uL (0.0-0.7); #Lymphocytes 0.9 thou/uL (1.20-3.40); #Neutrophils 11.2 thou/uL (1.40-6.50); %Basophils 0.2 % (0.0-1.0); %Eosinophils 0.4 % (0.0-10.0); %Lymphocytes 6.8 % (21.0-51.0); %Monocytes 7.4 % (0.0-10.0); %Neutrophils 85.2 % (42.0-75.0); Hemoglobin 12.8 g/dL (12.0-16.0); Mean Corpuscular HGB CONC 34.3 g/dL (32.0-36.0); Mean Corpuscular Hemoglobin 33.6 pg (27.0-31.0); Mean Corpuscular Volume 97.8 fL (78.0-98.0); Mean Platelet Volume 7.3 fL (7.4-10.4); Platelet Count 233 thou/uL (130-400); RBC Distribution Width 14.6 % (11.5-14.5); White Blood Cell (WBC) Count 13.1 thou/uL (4.8-10.8)
[2017-08-09] MEDS: NS 0.9% w/ 20 MEQ KCL 1,000 ML/1,000 ML BAG IV SCH (11:39)
[2017-08-09] MEDS: Potassium Chloride 20 MEQ TAB PO SCH (16:02)
--- NOTE | 2017-08-09 17:21 | PDOC.CTH ---
Cardiology Progress Note - Subjective She is feeling better but still volume down. Still a little dizzy when standing up to the chair but significantly better. - Objective Vital Signs Temp Pulse Pulse Pulse Resp BP BP 08/09/17 16:00 97.4 F L 101 H 16 08/09/17 11:50 97.9 F 95 16 08/09/17 09:17 103 H 112 H 89/55 L 92/54 L 08/09/17 08:35 97.9 F 68 16 08/09/17 07:21 08/09/17 07:19 97 16 BP BP Pulse Ox Pulse Ox 08/09/17 16:00 108/65 95 08/09/17 11:50 95/66 92 L 08/09/17 09:17 93/54 L 90 L 08/09/17 08:35 97/51 L 91 L 08/09/17 07:21 97 08/09/17 07:19 97 Admit Weight 105 lb 5 oz Weight 109 lb 4 oz 08/08/17 08/09/17 08/10/17 06:59 06:59 06:59 Intake Total 300 2700 Output Total 400 2300 Balance -100 400 - Physical Examination General/Neuro: alert & oriented x3, NAD Neck: no JVD present Lungs: unlabored respirations, other: (Reduced breath sounds unchanged. ) Heart: RRR Abdomen: NT/ND Extremities: other: (no edema.) - Telemetry Telemetry Rhythm: NSR - Labs Result Diagrams: 08/09/17 09:25 08/09/17 09:25 Troponin/CKMB CK-MB (CK-2) 2.7 ng/mL (0-6.6) 08/07/17 18:03 Troponin I 0.471 ng/mL (< 0.028) H* 08/08/17 00:15 - Assessment/Plan 1. Syncope 2. MASTER, pre renal 3. Pulmonary hypertension 4. SVT 5. NS VT 6. NSTEMI PLAN: - Continue gentle IV fluids. - Continue to replace K. - Once more euvolemic and fluids stopped will plan on restarting Lasix at previous home dose and will leave bumex only for as needed if lasix is not maintaining euvolemia. - Her edema is completely gone as compared to her last office visit with me. her breathing is much better as well. - On her last admission we spoke about possibly doing a LHC and she declined given her advanced pulmonary hypertension. She continues to feel this way for now. No plan on LHC at this time. - Will follow.
[2017-08-09] MEDS: diphenhydrAMINE 50 MG CAP PO SCH (20:22)
[2017-08-09] MEDS: Acetaminophen 325 MG TAB PO PRN (21:44)
[2017-08-10] MEDS: Levothyroxine Sodium 100 MCG TAB PO SCH (06:07)
[2017-08-10] MEDS: Acetaminophen 325 MG TAB PO PRN ×2 (06:17→15:55)
[2017-08-10] MEDS: Mometasone/Formoterol 120 PUFF INHALER INH SCH ×2 (06:24→19:45)
[2017-08-10] MEDS ORDERED: Bumetanide 1 MG TAB PO PRN (06:56)
[2017-08-10 07:42] LABS: #Lymphocytes 1.1 thou/uL (1.20-3.40); #Monocytes 1.1 thou/uL (0.11-0.59); #Neutrophils 10.3 thou/uL (1.40-6.50); %Basophils 0.1 % (0.0-1.0); %Eosinophils 0.3 % (0.0-10.0); %Lymphocytes 8.8 % (21.0-51.0); %Monocytes 8.7 % (0.0-10.0); %Neutrophils 82.1 % (42.0-75.0); Mean Corpuscular HGB CONC 33.8 g/dL (32.0-36.0); Mean Corpuscular Hemoglobin 33.5 pg (27.0-31.0); Mean Corpuscular Volume 99.1 fL (78.0-98.0); Mean Platelet Volume 7.6 fL (7.4-10.4); Platelet Count 231 thou/uL (130-400); RBC Distribution Width 14.6 % (11.5-14.5); Red Blood Cell (RBC) Count 3.59 mill/uL (4.20-5.40); White Blood Cell (WBC) Count 12.5 thou/uL (4.8-10.8)
[2017-08-10 07:53] LABS: BUN (Urea Nitrogen) 63 mg/dL (9.8-20.1); Calc. Creatinine Clearance 37 mL/min (70-130); Calcium 8.8 mg/dL (7.8-10.44); Estimated GFR-MDRD 47; Glucose 99 mg/dL (83-110)
[2017-08-10 08:02] LABS: Anion Gap 17 mmol/L (10-20); Carbon Dioxide 36 mmol/L (23-31); Chloride 84 mmol/L (98-107); Potassium 3.2 mmol/L (3.5-5.1); Sodium 134 mmol/L (136-145)
[2017-08-10] MEDS: Famotidine 20 MG TAB PO SCH (08:02)
[2017-08-10] MEDS: Spironolactone 100 MG TAB PO SCH ×2 (08:02→20:41)
[2017-08-10] MEDS: Potassium Chloride 20 MEQ TAB PO SCH (08:02)
[2017-08-10] MEDS: NS 0.9% w/ 20 MEQ KCL 1,000 ML/1,000 ML BAG IV SCH (08:02)
[2017-08-10] MEDS: Enoxaparin Sodium 30 MG/0.3 ML SYRINGE SC SCH (08:02)
[2017-08-10] MEDS ORDERED: Potassium Chloride 20 MEQ TAB PO SCH (09:00)
--- NOTE | 2017-08-10 10:40 | PDOC.PN ---
- Subjective Encounter Start Date: 08/10/17 Encounter Start Time: 07:50 Patient seen and examined. No new complaints. No overnight events - Objective Resuscitation Status: Resuscitation Status FULL:Full Resuscitation MAR Reviewed: Yes Vital Signs & Weight: Vital Signs (12 hours) Temp Pulse Resp BP Pulse Ox 08/10/17 08:00 98.0 F 97 18 90/47 L 93 L 08/10/17 06:24 71 14 97 08/10/17 03:47 98.0 F 17 98/47 L Weight Admit Weight 105 lb 5 oz Weight 115 lb I&O: 08/09/17 08/10/17 08/11/17 06:59 06:59 06:59 Intake Total 2700 1410 Output Total 2300 2800 Balance 400 -1390 Result Diagrams: 08/10/17 07:02 08/10/17 07:02 EKG Reviewed by me: Yes Phys Exam - Physical Examination Constitutional: NAD HEENT: PERRLA, moist MMs, sclera anicteric Neck: no JVD, supple Respiratory: no wheezing, no rales, no rhonchi Cardiovascular: RRR, no rub SM+ Gastrointestinal: soft, non-tender, no distention, positive bowel sounds Musculoskeletal: no edema, pulses present Neurological: non-focal, normal sensation Lymphatic: no nodes Psychiatric: normal affect Skin: normal turgor Dx/Plan (1) Acute kidney failure Status: Acute (2) Elevated troponin Code(s): R74.8 - ABNORMAL LEVELS OF OTHER SERUM ENZYMES Status: Acute (3) Fall Code(s): W19.XXXA - UNSPECIFIED FALL, INITIAL ENCOUNTER Status: Acute (4) Hypochloremia Code(s): E87.8 - OTH DISORDERS OF ELECTROLYTE AND FLUID BALANCE, NEC Status: Acute (5) Hypokalemia Code(s): E87.6 - HYPOKALEMIA Status: Acute (6) Hyponatremia Code(s): E87.1 - HYPO-OSMOLALITY AND HYPONATREMIA Status: Acute (7) Asthma Code(s): J45.909 - UNSPECIFIED ASTHMA, UNCOMPLICATED Status: Chronic Qualifiers: Asthma severity: unspecified severity Asthma persistence: intermittent Asthma complication type: uncomplicated Qualified Code(s): J45.20 - Mild intermittent asthma, uncomplicated Comment: stable (8) Chronic respiratory failure with hypoxia, on home O2 therapy Code(s): J96.11 - CHRONIC RESPIRATORY FAILURE WITH HYPOXIA; Z99.81 - DEPENDENCE ON SUPPLEMENTAL OXYGEN Status: Chronic (9) H/O Amplatzer atrial septal defect closure Code(s): Z87.74 - PERSONAL HISTORY OF CONGENITAL MALFORM OF HEART AND CIRC SYS Status: Chronic (10) Hypothyroidism Code(s): E03.9 - HYPOTHYROIDISM, UNSPECIFIED Status: Chronic (11) Protein-calorie malnutrition, moderate Code(s): E44.0 - MODERATE PROTEIN-CALORIE MALNUTRITION Status: Chronic (12) Pulmonary hypertension Code(s): I27.20 - PULMONARY HYPERTENSION, UNSPECIFIED Status: Chronic Comment: continue epoprostenol (13) Severe tricuspid regurgitation by prior echocardiogram Code(s): I07.1 - RHEUMATIC TRICUSPID INSUFFICIENCY Status: Chronic - Plan cont current plan of care * replace potassium * continue IVF * expecting discharge tomorrow * cardiology recommendation noted * medication reviewed as below * symptomatic treatment. Review of Systems - Review of Systems ENT: negative: Ear Pain, Ear Discharge, Nose Pain, Nose Discharge, Nose Congestion, Mouth Pain, Mouth Swelling, Throat Pain, Throat Swelling, Other Respiratory: negative: Cough, Dry, Shortness of Breath, Hemoptysis, SOB with Excertion, Pleuritic Pain, Sputum, Wheezing Cardiovascular: negative: chest pain, palpitations, orthopnea, paroxysmal nocturnal dyspnea, edema, light headedness, other Gastrointestinal: negative: Nausea, Vomiting, Abdominal Pain, Diarrhea, Constipation, Melena, Hematochezia, Other Genitourinary: negative: Dysuria, Frequency, Incontinence, Hematuria, Retention , Other Musculoskeletal: negative: Neck Pain, Shoulder Pain, Arm Pain, Back Pain, Hand Pain, Leg Pain, Foot Pain, Other - Medications/Allergies Allergies/Adverse Reactions: Allergies Allergy/AdvReac Type Severity Reaction Status Date / Time adhesive Allergy Short of Verified 08/08/17 08:26 Breath vancomycin Allergy Verified 08/07/17 23:41 Medications: Current Medications Acetaminophen (Tylenol) 650 mg PO Q4H PRN PRN Reason: Headache/Fever or Pain Last Admin: 08/10/17 06:17 Dose: 650 mg Al Hydroxide/Mg Hydroxide (Maalox) 15 ml PO Q4H PRN PRN Reason: Heartburn or Indigestion Artificial Tears (Tears Naturale) 0 drop EA EYE PRN PRN PRN Reason: Dry Eyes Bumetanide (Bumex) 2 mg PO DAILY PRN PRN Reason: Edema Diphenhydramine HCl (Benadryl) 50 mg PO HS [facility] Last Admin: 08/09/17 20:22 Dose: 50 mg Enoxaparin Sodium (Lovenox) 30 mg SC 0900 [facility] Last Admin: 08/10/17 08:02 Dose: 30 mg Famotidine (Pepcid) 20 mg PO DAILY [facility] Last Admin: 08/10/17 08:02 Dose: 20 mg Guaifenesin (Robitussin Sf) 200 mg PO Q4H PRN PRN Reason: Cough Hydralazine HCl (Apresoline) 10 mg SLOW IVP Q4H PRN PRN Reason: Systolic BP > 180 Potassium Chloride/Sodium Chloride (Ns 0.9% W/ 20 Meq Kcl) 1,000 ml in 1,000 mls @ 50 mls/hr IV .Q20H [facility] Last Admin: 08/10/17 08:02 Dose: 1,000 mls Levothyroxine Sodium (Synthroid) 100 mcg PO 0600 [facility] Last Admin: 08/10/17 06:07 Dose: 100 mcg Loperamide HCl (Imodium) 2 mg PO PRN PRN PRN Reason: Diarrhea/Loose Stools Loratadine (Claritin) 10 mg PO DAILYPRN PRN PRN Reason: Sinus Symptoms Magnesium Hydroxide (Milk Of Magnesium) 30 ml PO DAILYPRN PRN PRN Reason: Constipation Mineral Oil/White Petrolatum (Eucerin Cream) 0 gm TOP BIDPRN PRN PRN Reason: Dry Skin Mometasone Furoate/Formoterol Fumar (Dulera 200 Mcg/5 Mcg Inhaler) 1 puff INH BID-RT [facility] Last Admin: 08/10/17 06:24 Dose: 1 puff Mometasone Furoate/Formoterol Fumar (Dulera 100 Mcg/5 Mcg Inhaler) 1 puff INH BID-RT PRN PRN Reason: Cough Ondansetron HCl (Zofran) 4 mg IVP Q6H PRN PRN Reason: Nausea/Vomiting Ondansetron HCl (Zofran Odt) 4 mg PO Q6H PRN PRN Reason: Nausea/Vomiting Epoprostenol Sodium (1.5 Mg) 0 each IV 2100 [facility] Last Admin: 08/09/17 20:24 Dose: 1 each Phenol (Chloraseptic [place] 180 Ml Bot) 0 ml PO PRN PRN PRN Reason: Sore Throat Potassium Chloride (K-Dur) 40 meq PO NOW [facility] Stop: 08/10/17 12:00 Last Admin: 08/10/17 09:56 Dose: 40 meq Senna (Senokot) 2 tab PO HSPRN PRN PRN Reason: Constipation Sodium Chloride ([place] Nasal [place] 0.65%) 0 ml EA NARE QIDPRN PRN PRN Reason: Nasal Congestion Sodium Chloride (Flush - Normal Saline) 10 ml IVF Q12HR [facility] Last Admin: 08/10/17 08:03 Dose: Not Given Sodium Chloride (Flush - Normal Saline) 10 ml IVF PRN PRN PRN Reason: Saline Flush Spironolactone (Aldactone) 100 mg PO BID [facility] Last Admin: 08/10/17 08:02 Dose: 100 mg
[2017-08-10 17:44] LABS: Bilirubin Negative (Negative); Blood, Urine Moderate (Negative); Clarity CLOUDY (Clear); Glucose, Urine (Dipstick) Negative (Negative); Leukocyte Large (Negative); Nitrite Negative (Negative); Protein, Urine (Dipstick) 30 mg/dL (Neg-Trace); Specific Gravity, Urine 1.012 (1.002-1.036)
[2017-08-10 17:46] LABS: Bacteria/HPF 3+ HPF (None Seen); Hyaline Casts/LPF 4-6 HYALINE CAST LPF (0-3 Hyaline); Pathc Cast-AUWi Flag 0.43 (0-2.49); Squamous Epithelial 0-3 HPF (0-3)
--- NOTE | 2017-08-10 18:36 | PDOC.CTH ---
Cardiology Progress Note - Subjective She is doing better today. Her creatinine has improved. She still feels weak but not lightheaded or dizzy. - Objective Vital Signs Temp Pulse Pulse Pulse Resp BP BP 08/10/17 15:50 98.2 F 70 18 08/10/17 13:24 74 85 105/58 L 113/57 L 08/10/17 12:05 98.2 F 74 16 08/10/17 08:00 98.0 F 97 18 BP Pulse Ox 08/10/17 15:50 100/52 L 94 L 08/10/17 13:24 08/10/17 12:05 109/59 L 92 L 08/10/17 08:00 90/47 L 93 L Admit Weight 105 lb 5 oz Weight 115 lb 08/09/17 08/10/17 08/11/17 06:59 06:59 06:59 Intake Total 2700 1410 Output Total 2300 2800 Balance 400 -1390 - Physical Examination General/Neuro: alert & oriented x3, NAD Neck: no JVD present Lungs: unlabored respirations, other: (Reduced breath sounds bilat. ) Heart: RRR Abdomen: NT/ND Extremities: other: (no edema) - Telemetry Telemetry Rhythm: NSR - Labs Result Diagrams: 08/10/17 07:02 08/10/17 07:02 Troponin/CKMB CK-MB (CK-2) 2.7 ng/mL (0-6.6) 08/07/17 18:03 Troponin I 0.471 ng/mL (< 0.028) H* 08/08/17 00:15 - Assessment/Plan 1. Syncope 2. MASTER, pre renal 3. Pulmonary hypertension 4. SVT 5. NS VT 6. NSTEMI 7. Hypokalemia PLAN: - Will stop IV fluuids this afternoon. - Continue to replace K. - Will see how her edema and her creatinine behaves off of IV fluids and diuresis. - Plan to keep here in Hospital until Wednesday, tomorrow will restart digoxin and will restart home dose of Lasix for Wednesday discharge see if she tolerates this. - She has been back to the hospital at least 3 times since original admission. Will make sure regimen keeps her fluid status stable before discharge. - She would like to wait until to re start PT.
[2017-08-10] MEDS: EPOPROSTENOL SODIUM IV SCH (20:41)
[2017-08-10] MEDS: diphenhydrAMINE 50 MG CAP PO SCH (20:41)
[2017-08-11] MEDS: Levothyroxine Sodium 100 MCG TAB PO SCH (05:53)
[2017-08-11] MEDS: Mometasone/Formoterol 120 PUFF INHALER INH SCH ×2 (06:12→19:02)
[2017-08-11 07:51] LABS: #Eosinphils 0.1 thou/uL (0.0-0.7); #Lymphocytes 1.1 thou/uL (1.20-3.40); #Monocytes 0.7 thou/uL (0.11-0.59); #Neutrophils 7.5 thou/uL (1.40-6.50); %Basophils 0.2 % (0.0-1.0); %Eosinophils 0.8 % (0.0-10.0); %Lymphocytes 11.5 % (21.0-51.0); %Monocytes 7.6 % (0.0-10.0); %Neutrophils 79.9 % (42.0-75.0); Hemoglobin 12.1 g/dL (12.0-16.0); Mean Corpuscular HGB CONC 32.8 g/dL (32.0-36.0); Mean Corpuscular Hemoglobin 33.2 pg (27.0-31.0); Mean Platelet Volume 7.7 fL (7.4-10.4); Platelet Count 230 thou/uL (130-400); RBC Distribution Width 14.7 % (11.5-14.5); Red Blood Cell (RBC) Count 3.63 mill/uL (4.20-5.40); White Blood Cell (WBC) Count 9.4 thou/uL (4.8-10.8)
[2017-08-11 08:09] LABS: Anion Gap 10 mmol/L (10-20); BUN (Urea Nitrogen) 45 mg/dL (9.8-20.1); Calc. Creatinine Clearance 44 mL/min (70-130); Carbon Dioxide 37 mmol/L (23-31); Chloride 90 mmol/L (98-107); Estimated GFR-MDRD 56; Glucose 99 mg/dL (83-110); Potassium 3.9 mmol/L (3.5-5.1); Sodium 133 mmol/L (136-145)
[2017-08-11] MEDS: Famotidine 20 MG TAB PO SCH (10:03)
[2017-08-11] MEDS: Digoxin 0.125 MG TAB PO SCH (10:03)
[2017-08-11] MEDS: Enoxaparin Sodium 30 MG/0.3 ML SYRINGE SC SCH (10:03)
[2017-08-11] MEDS: Spironolactone 100 MG TAB PO SCH ×2 (10:03→21:20)
--- NOTE | 2017-08-11 10:35 | PDOC.PN ---
- Subjective Encounter Start Date: 08/11/17 Encounter Start Time: 07:50 Patient seen and examined for acute kidney injury. No new complaints. No overnight events - Objective Resuscitation Status: Resuscitation Status FULL:Full Resuscitation MAR Reviewed: Yes Vital Signs & Weight: Vital Signs (12 hours) Temp Pulse Resp BP Pulse Ox 08/11/17 10:03 83 08/11/17 08:00 96.8 F L 83 16 102/52 L 88 L 08/11/17 06:12 80 14 96 08/11/17 03:46 97.5 F L 80 16 104/62 Weight Admit Weight 105 lb 5 oz Weight 115 lb 12.8 oz I&O: 08/10/17 08/11/17 08/12/17 06:59 06:59 06:59 Intake Total 1410 1933 Output Total 2800 1225 Balance -1390 708 Result Diagrams: 08/11/17 07:19 08/11/17 07:19 EKG Reviewed by me: Yes Phys Exam - Physical Examination Constitutional: NAD HEENT: PERRLA, moist MMs, sclera anicteric Neck: no JVD, supple Respiratory: no wheezing, no rales, no rhonchi Cardiovascular: irregular SM+ Gastrointestinal: soft, non-tender, no distention, positive bowel sounds Musculoskeletal: no edema, pulses present Neurological: non-focal, normal sensation, moves all 4 limbs Psychiatric: normal affect, A&O x 3 Skin: normal turgor Deviation from normal: bruise Dx/Plan (1) Acute kidney failure Status: Resolved (2) Elevated troponin Code(s): R74.8 - ABNORMAL LEVELS OF OTHER SERUM ENZYMES Status: Acute (3) Fall Code(s): W19.XXXA - UNSPECIFIED FALL, INITIAL ENCOUNTER Status: Acute (4) Hypochloremia Code(s): E87.8 - OTH DISORDERS OF ELECTROLYTE AND FLUID BALANCE, NEC Status: Acute (5) Hypokalemia Code(s): E87.6 - HYPOKALEMIA Status: Resolved (6) Hyponatremia Code(s): E87.1 - HYPO-OSMOLALITY AND HYPONATREMIA Status: Acute (7) Asthma Code(s): J45.909 - UNSPECIFIED ASTHMA, UNCOMPLICATED Status: Chronic Qualifiers: Asthma severity: unspecified severity Asthma persistence: intermittent Asthma complication type: uncomplicated Qualified Code(s): J45.20 - Mild intermittent asthma, uncomplicated Comment: stable (8) Chronic respiratory failure with hypoxia, on home O2 therapy Code(s): J96.11 - CHRONIC RESPIRATORY FAILURE WITH HYPOXIA; Z99.81 - DEPENDENCE ON SUPPLEMENTAL OXYGEN Status: Chronic (9) H/O Amplatzer atrial septal defect closure Code(s): Z87.74 - PERSONAL HISTORY OF CONGENITAL MALFORM OF HEART AND CIRC SYS Status: Chronic (10) Hypothyroidism Code(s): E03.9 - HYPOTHYROIDISM, UNSPECIFIED Status: Chronic (11) Protein-calorie malnutrition, moderate Code(s): E44.0 - MODERATE PROTEIN-CALORIE MALNUTRITION Status: Chronic (12) Pulmonary hypertension Code(s): I27.20 - PULMONARY HYPERTENSION, UNSPECIFIED Status: Chronic Comment: continue epoprostenol (13) Severe tricuspid regurgitation by prior echocardiogram Code(s): I07.1 - RHEUMATIC TRICUSPID INSUFFICIENCY Status: Chronic - Plan cont current plan of care * electrolytes improving * today will monitor off IVF and see how she does * will consider discharge when cleared by cardiology * medication reviewed as below * symptomatic treatment. Review of Systems - Review of Systems Eyes: negative: Pain, Vision Change, Conjunctivae Inflammation, Eyelid Inflammation, Redness, Other ENT: negative: Ear Pain, Ear Discharge, Nose Pain, Nose Discharge, Nose Congestion, Mouth Pain, Mouth Swelling, Throat Pain, Throat Swelling, Other Respiratory: negative: Cough, Dry, Shortness of Breath, Hemoptysis, SOB with Excertion, Pleuritic Pain, Sputum, Wheezing Cardiovascular: negative: chest pain, palpitations, orthopnea, paroxysmal nocturnal dyspnea, edema, light headedness, other Gastrointestinal: negative: Nausea, Vomiting, Abdominal Pain, Diarrhea, Constipation, Melena, Hematochezia, Other Genitourinary: negative: Dysuria, Frequency, Incontinence, Hematuria, Retention , Other Musculoskeletal: negative: Neck Pain, Shoulder Pain, Arm Pain, Back Pain, Hand Pain, Leg Pain, Foot Pain, Other Skin: negative: Rash, Lesions, Eddi, Bruising, Other - Medications/Allergies Allergies/Adverse Reactions: Allergies Allergy/AdvReac Type Severity Reaction Status Date / Time adhesive Allergy Short of Verified 08/08/17 08:26 Breath vancomycin Allergy Verified 08/07/17 23:41 Medications: Current Medications Acetaminophen (Tylenol) 650 mg PO Q4H PRN PRN Reason: Headache/Fever or Pain Last Admin: 08/10/17 15:55 Dose: 650 mg Al Hydroxide/Mg Hydroxide (Maalox) 15 ml PO Q4H PRN PRN Reason: Heartburn or Indigestion Artificial Tears (Tears Naturale) 0 drop EA EYE PRN PRN PRN Reason: Dry Eyes Bumetanide (Bumex) 2 mg PO DAILY PRN PRN Reason: Edema Digoxin (Lanoxin) 0.125 mg PO DAILY [facility] Last Admin: 08/11/17 10:03 Dose: 0.125 mg Diphenhydramine HCl (Benadryl) 50 mg PO HS [facility] Last Admin: 08/10/17 20:41 Dose: 50 mg Enoxaparin Sodium (Lovenox) 30 mg SC 0900 [facility] Last Admin: 08/11/17 10:03 Dose: 30 mg Famotidine (Pepcid) 20 mg PO DAILY [facility] Last Admin: 08/11/17 10:03 Dose: 20 mg Guaifenesin (Robitussin Sf) 200 mg PO Q4H PRN PRN Reason: Cough Hydralazine HCl (Apresoline) 10 mg SLOW IVP Q4H PRN PRN Reason: Systolic BP > 180 Levofloxacin 500 mg/ Device 100 mls @ 100 mls/hr IVPB Q24HR [facility] Last Admin: 08/11/17 10:05 Dose: 100 mls Levothyroxine Sodium (Synthroid) 100 mcg PO 0600 [facility] Last Admin: 08/11/17 05:53 Dose: 100 mcg Loperamide HCl (Imodium) 2 mg PO PRN PRN PRN Reason: Diarrhea/Loose Stools Loratadine (Claritin) 10 mg PO DAILYPRN PRN PRN Reason: Sinus Symptoms Magnesium Hydroxide (Milk Of Magnesium) 30 ml PO DAILYPRN PRN PRN Reason: Constipation Mineral Oil/White Petrolatum (Eucerin Cream) 0 gm TOP BIDPRN PRN PRN Reason: Dry Skin Mometasone Furoate/Formoterol Fumar (Dulera 200 Mcg/5 Mcg Inhaler) 1 puff INH BID-RT [facility] Last Admin: 08/11/17 06:12 Dose: 1 puff Mometasone Furoate/Formoterol Fumar (Dulera 100 Mcg/5 Mcg Inhaler) 1 puff INH BID-RT PRN PRN Reason: Cough Ondansetron HCl (Zofran) 4 mg IVP Q6H PRN PRN Reason: Nausea/Vomiting Ondansetron HCl (Zofran Odt) 4 mg PO Q6H PRN PRN Reason: Nausea/Vomiting Epoprostenol Sodium (1.5 Mg) 0 each IV 2100 [facility] Last Admin: 08/10/17 20:41 Dose: 1 each Phenol (Chloraseptic [place] 180 Ml Bot) 0 ml PO PRN PRN PRN Reason: Sore Throat Senna (Senokot) 2 tab PO HSPRN PRN PRN Reason: Constipation Sodium Chloride ([place] Nasal [place] 0.65%) 0 ml EA NARE QIDPRN PRN PRN Reason: Nasal Congestion Sodium Chloride (Flush - Normal Saline) 10 ml IVF Q12HR [facility] Last Admin: 08/10/17 20:44 Dose: 10 ml Sodium Chloride (Flush - Normal Saline) 10 ml IVF PRN PRN PRN Reason: Saline Flush Spironolactone (Aldactone) 100 mg PO BID [facility] Last Admin: 08/11/17 10:03 Dose: 100 mg
--- NOTE | 2017-08-11 12:14 | PQF ---
CLINICAL DOCUMENTATION IMPROVEMENT CLARIFICATION FORM: ICD-10 Updated PLEASE DO AN ADDENDUM TO THE PROGRESS NOTE WITH ANY DOCUMENTATION UPDATES OR ADDITIONS AND CARRY THROUGH TO DC SUMMARY. THANK YOU. DATE: 08/11/17 ATTN: Dr. Almaguer Please exercise your independent, professional judgment in responding to the clarification form. Clinical indicators are provided on the bottom of this form for your review Please check appropriate box(s): AMI TYPE: [ ] NSTEMI [ ] AMI Type II [ ] Demand ischemia [ ] Other diagnosis _NSTEMI type- 2 due to demand ischemia [ ] Unable to determine In addition, please specify: Present on Admission (POA): [ x ] Yes [ ] No [ ] Unable to determine CLINICAL INDICATORS - SIGNS / SYMPTOMS / LABS H&P 08/07: POSITIVE TROPONIN 0.5 X2, NO OTHER EVIDENCE FOR ACUTE CORONARY SYNDROME, THIS COULD BE SECONDARY TO A [id number] MO TYPE 2, ESPECIALLY IN THE EVENT OF MASTER. TROPONIN I LABS: 08/07 @ 1803 0.560 08/07 @ 2135 0.522 08/08 @ 0015 0.471 CREATININE 08/07 1.66 08/08 1.60 08/10 1.14 08/11 0.98 CARDIOLOGY PN 08/09 - 08/10: NSTEMI RISKS: H&P 08/07: HX OF PULMONARY HYPERTENSION, STROKE, CHF. ASSESSMENT: DEHYDRATION. MASTER, HYPONATREMIA. TREATMENT: ORDER CARDIOLOGY CONSULT 08/07 08/07: INPATIENT: TELEMETRY CPOE 08/07: LOVENOX 30MG SC 0900. DC'D 08/11. CPOE 08/11: LOVENOX 40 MG SC 0900 CPOE 08/08: LACTATED RINGER'S 1,000ML IV 100 MLS/HR. DC'D 08/08 _ Thank you, Tea (This form is maintained as a part of the permanent medical record) 2014 [employer]. All Rights Reserved Tea Kovacs, RN, BSN [email or web address] Office: [phone] [facility]
--- NOTE | 2017-08-11 17:02 | PDOC.CTH ---
Cardiology Progress Note - Subjective She is doing well today. No new issues. Daughter in the room and questions answered. - Objective Vital Signs Temp Pulse Resp BP Pulse Ox 08/11/17 14:59 98.6 F 80 126/60 95 08/11/17 10:03 83 08/11/17 08:00 96.8 F L 83 16 102/52 L 88 L 08/11/17 06:12 80 14 96 Admit Weight 105 lb 5 oz Weight 116 lb 9.6 oz 08/10/17 08/11/17 08/12/17 06:59 06:59 06:59 Intake Total 1410 1933 Output Total 2800 1225 Balance -1390 708 - Physical Examination General/Neuro: alert & oriented x3, NAD Neck: no JVD present Lungs: CTA, unlabored respirations Heart: RRR Abdomen: NT/ND Extremities: other: (no edema) - Telemetry Telemetry Rhythm: NSR - Labs Result Diagrams: 08/11/17 07:19 08/11/17 07:19 Troponin/CKMB CK-MB (CK-2) 2.7 ng/mL (0-6.6) 08/07/17 18:03 Troponin I 0.471 ng/mL (< 0.028) H* 08/08/17 00:15 - Assessment/Plan 1. Syncope 2. MASTER, pre renal 3. Pulmonary hypertension 4. SVT 5. NS VT 6. NSTEMI 7. Hypokalemia PLAN: - Will start PO lasix tomorrow at 80 mg AM and 40 mg PM - Continue to replace K as needed. - Plan to keep here in Hospital until Wednesday, start digoxin and likely Wednesday discharge. - She would like to wait until tomorrow to re start PT.
[2017-08-11] MEDS: EPOPROSTENOL SODIUM IV SCH (21:20)
[2017-08-11] MEDS: diphenhydrAMINE 50 MG CAP PO SCH (21:20)
[2017-08-11] MEDS: Acetaminophen 325 MG TAB PO PRN (23:30)
[2017-08-12] MEDS: Levothyroxine Sodium 100 MCG TAB PO SCH (05:59)
[2017-08-12] MEDS: Mometasone/Formoterol 120 PUFF INHALER INH SCH ×2 (07:32→19:14)
[2017-08-12 09:28] VITALS: BMI 20.3
[2017-08-12] MEDS: Spironolactone 100 MG TAB PO SCH ×2 (10:12→21:05)
[2017-08-12] MEDS: Furosemide 80 MG TAB PO SCH (10:12)
[2017-08-12] MEDS: Digoxin 0.125 MG TAB PO SCH (10:12)
[2017-08-12] MEDS: Famotidine 20 MG TAB PO SCH (10:12)
[2017-08-12] MEDS: Enoxaparin Sodium 40 MG/0.4 ML SYRINGE SC SCH (10:13)
--- NOTE | 2017-08-12 10:13 | PDOC.PN ---
- Subjective Encounter Start Date: 08/12/17 Encounter Start Time: 07:40 Patient seen and examined. No new complaints. No overnight events - Objective Resuscitation Status: Resuscitation Status FULL:Full Resuscitation MAR Reviewed: Yes Vital Signs & Weight: Vital Signs (12 hours) Temp Pulse Resp BP Pulse Ox 08/12/17 08:00 96.5 F L 85 16 90/52 L 91 L 08/12/17 06:44 85 12 96 08/12/17 04:00 97.7 F 70 18 97/51 L 94 L Weight Admit Weight 105 lb 5 oz Weight 118 lb 6.4 oz I&O: 08/11/17 08/12/17 08/13/17 06:59 06:59 06:59 Intake Total 1933 480 Output Total 1225 Balance 708 480 Result Diagrams: 08/11/17 07:19 08/11/17 07:19 EKG Reviewed by me: Yes (afib) Phys Exam - Physical Examination Constitutional: NAD HEENT: PERRLA, moist MMs, sclera anicteric Neck: no JVD, supple Respiratory: no wheezing, no rales, no rhonchi Cardiovascular: irregular SM+ Gastrointestinal: soft, non-tender, no distention, positive bowel sounds Musculoskeletal: no edema, pulses present Neurological: non-focal, normal sensation, moves all 4 limbs Psychiatric: normal affect, A&O x 3 Skin: no rash, normal turgor Dx/Plan (1) Acute kidney failure Status: Resolved (2) Elevated troponin Code(s): R74.8 - ABNORMAL LEVELS OF OTHER SERUM ENZYMES Status: Acute (3) Fall Code(s): W19.XXXA - UNSPECIFIED FALL, INITIAL ENCOUNTER Status: Acute (4) Hypochloremia Code(s): E87.8 - OTH DISORDERS OF ELECTROLYTE AND FLUID BALANCE, NEC Status: Acute (5) Hypokalemia Code(s): E87.6 - HYPOKALEMIA Status: Resolved (6) Hyponatremia Code(s): E87.1 - HYPO-OSMOLALITY AND HYPONATREMIA Status: Acute (7) Asthma Code(s): J45.909 - UNSPECIFIED ASTHMA, UNCOMPLICATED Status: Chronic Qualifiers: Asthma severity: unspecified severity Asthma persistence: intermittent Asthma complication type: uncomplicated Qualified Code(s): J45.20 - Mild intermittent asthma, uncomplicated Comment: stable (8) Chronic respiratory failure with hypoxia, on home O2 therapy Code(s): J96.11 - CHRONIC RESPIRATORY FAILURE WITH HYPOXIA; Z99.81 - DEPENDENCE ON SUPPLEMENTAL OXYGEN Status: Chronic (9) H/O Amplatzer atrial septal defect closure Code(s): Z87.74 - PERSONAL HISTORY OF CONGENITAL MALFORM OF HEART AND CIRC SYS Status: Chronic (10) Hypothyroidism Code(s): E03.9 - HYPOTHYROIDISM, UNSPECIFIED Status: Chronic (11) Protein-calorie malnutrition, moderate Code(s): E44.0 - MODERATE PROTEIN-CALORIE MALNUTRITION Status: Chronic (12) Pulmonary hypertension Code(s): I27.20 - PULMONARY HYPERTENSION, UNSPECIFIED Status: Chronic Comment: continue epoprostenol (13) Severe tricuspid regurgitation by prior echocardiogram Code(s): I07.1 - RHEUMATIC TRICUSPID INSUFFICIENCY Status: Chronic (14) UTI (urinary tract infection) Status: Acute - Plan cont current plan of care, continue antibiotics, PT/OT * based on culture result, will c levaquin and add rocephin * today lasix started * tomorrow BMP * start PT * expecting discharge tomorrow as per cardiology * on discharge macrobid * medication reviewed as below * symptomatic treatment. Review of Systems - Review of Systems ENT: negative: Ear Pain, Ear Discharge, Nose Pain, Nose Discharge, Nose Congestion, Mouth Pain, Mouth Swelling, Throat Pain, Throat Swelling, Other Respiratory: negative: Cough, Dry, Shortness of Breath, Hemoptysis, SOB with Excertion, Pleuritic Pain, Sputum, Wheezing Cardiovascular: negative: chest pain, palpitations, orthopnea, paroxysmal nocturnal dyspnea, edema, light headedness, other Gastrointestinal: negative: Nausea, Vomiting, Abdominal Pain, Diarrhea, Constipation, Melena, Hematochezia, Other Genitourinary: negative: Dysuria, Frequency, Incontinence, Hematuria, Retention , Other Musculoskeletal: negative: Neck Pain, Shoulder Pain, Arm Pain, Back Pain, Hand Pain, Leg Pain, Foot Pain, Other Skin: negative: Rash, Lesions, Eddi, Bruising, Other - Medications/Allergies Allergies/Adverse Reactions: Allergies Allergy/AdvReac Type Severity Reaction Status Date / Time adhesive Allergy Short of Verified 08/08/17 08:26 Breath vancomycin Allergy Verified 08/07/17 23:41 Medications: Current Medications Acetaminophen (Tylenol) 650 mg PO Q4H PRN PRN Reason: Headache/Fever or Pain Last Admin: 08/11/17 23:30 Dose: 650 mg Al Hydroxide/Mg Hydroxide (Maalox) 15 ml PO Q4H PRN PRN Reason: Heartburn or Indigestion Artificial Tears (Tears Naturale) 0 drop EA EYE PRN PRN PRN Reason: Dry Eyes Bumetanide (Bumex) 2 mg PO DAILY PRN PRN Reason: Edema Digoxin (Lanoxin) 0.125 mg PO DAILY [facility] Last Admin: 08/11/17 10:03 Dose: 0.125 mg Diphenhydramine HCl (Benadryl) 50 mg PO HS [facility] Last Admin: 08/11/17 21:20 Dose: 50 mg Enoxaparin Sodium (Lovenox) 40 mg SC 0900 [facility] Famotidine (Pepcid) 20 mg PO DAILY [facility] Last Admin: 08/11/17 10:03 Dose: 20 mg Furosemide (Lasix) 80 mg PO 0900 [facility] Furosemide (Lasix) 40 mg PO 1400 [facility] Guaifenesin (Robitussin Sf) 200 mg PO Q4H PRN PRN Reason: Cough Hydralazine HCl (Apresoline) 10 mg SLOW IVP Q4H PRN PRN Reason: Systolic BP > 180 Ceftriaxone Sodium 1 gm/ (Sodium Chloride) 100 mls @ 200 mls/hr IVPB Q24HR [facility] Levothyroxine Sodium (Synthroid) 100 mcg PO 0600 [facility] Last Admin: 08/12/17 05:59 Dose: 100 mcg Loperamide HCl (Imodium) 2 mg PO PRN PRN PRN Reason: Diarrhea/Loose Stools Loratadine (Claritin) 10 mg PO DAILYPRN PRN PRN Reason: Sinus Symptoms Magnesium Hydroxide (Milk Of Magnesium) 30 ml PO DAILYPRN PRN PRN Reason: Constipation Mineral Oil/White Petrolatum (Eucerin Cream) 0 gm TOP BIDPRN PRN PRN Reason: Dry Skin Mometasone Furoate/Formoterol Fumar (Dulera 200 Mcg/5 Mcg Inhaler) 1 puff INH BID-RT [facility] Last Admin: 08/12/17 07:32 Dose: Not Given Mometasone Furoate/Formoterol Fumar (Dulera 100 Mcg/5 Mcg Inhaler) 1 puff INH BID-RT PRN PRN Reason: Cough Last Admin: 08/12/17 06:44 Dose: 1 puff Ondansetron HCl (Zofran) 4 mg IVP Q6H PRN PRN Reason: Nausea/Vomiting Ondansetron HCl (Zofran Odt) 4 mg PO Q6H PRN PRN Reason: Nausea/Vomiting Epoprostenol Sodium (1.5 Mg) 0 each IV 2100 [facility] Last Admin: 08/11/17 21:20 Dose: 1 each Phenol (Chloraseptic [place] 180 Ml Bot) 0 ml PO PRN PRN PRN Reason: Sore Throat Senna (Senokot) 2 tab PO HSPRN PRN PRN Reason: Constipation Sodium Chloride ([place] Nasal [place] 0.65%) 0 ml EA NARE QIDPRN PRN PRN Reason: Nasal Congestion Sodium Chloride (Flush - Normal Saline) 10 ml IVF Q12HR [facility] Last Admin: 08/11/17 21:20 Dose: 10 ml Sodium Chloride (Flush - Normal Saline) 10 ml IVF PRN PRN PRN Reason: Saline Flush Spironolactone (Aldactone) 100 mg PO BID [facility] Last Admin: 08/11/17 21:20 Dose: 100 mg
[2017-08-12] MEDS ORDERED: Furosemide 40 MG TAB PO SCH (14:00)
[2017-08-12] MEDS: cefTRIAXone\\ROCEPHIN 1 GM in Sodium Chloride 0.9% 100 ML IVPB SCH (14:11)
--- NOTE | 2017-08-12 17:15 | PDOC.CTH ---
Cardiology Progress Note - Subjective She is doing very well> She has tolerated lasix without issues. She denies lightheadedness, syncope, presyncope, chest pain, tightness, pressure. - Objective Vital Signs Temp Pulse Pulse Pulse Resp BP BP 08/12/17 15:45 86 85 103/55 L 136/61 08/12/17 08:00 96.5 F L 85 16 08/12/17 06:44 85 12 BP Pulse Ox Pulse Ox 08/12/17 15:45 87 L 08/12/17 08:00 90/52 L 91 L 08/12/17 06:44 96 Admit Weight 105 lb 5 oz Weight 118 lb 6.4 oz 08/11/17 08/12/17 08/13/17 06:59 06:59 06:59 Intake Total 1933 480 Output Total 1225 Balance 708 480 - Physical Examination General/Neuro: alert & oriented x3, NAD Neck: no JVD present Lungs: other: (Reduced breath aounds, unchjanged.) Heart: RRR Abdomen: NT/ND Extremities: + edema B (trace) - Telemetry Telemetry Rhythm: NSR - Labs Result Diagrams: 08/11/17 07:19 08/11/17 07:19 Troponin/CKMB CK-MB (CK-2) 2.7 ng/mL (0-6.6) 08/07/17 18:03 Troponin I 0.471 ng/mL (< 0.028) H* 08/08/17 00:15 - Assessment/Plan 1. Syncope 2. MASTER, pre renal 3. Pulmonary hypertension 4. SVT 5. NS VT 6. NSTEMI 7. Hypokalemia, resolved. PLAN: - Home tomorrow. - Continue current lasix regimen and use Torsemide only as needed.
[2017-08-12] MEDS: diphenhydrAMINE 50 MG CAP PO SCH (21:04)
[2017-08-12] MEDS: Acetaminophen 325 MG TAB PO PRN (21:06)
[2017-08-12] MEDS: EPOPROSTENOL SODIUM IV SCH (21:07)
[2017-08-13] MEDS: Levothyroxine Sodium 100 MCG TAB PO SCH (05:19)
[2017-08-13 05:40] LABS: Anion Gap 12 mmol/L (10-20); BUN (Urea Nitrogen) 35 mg/dL (9.8-20.1); Calc. Creatinine Clearance 44 mL/min (70-130); Calcium 8.9 mg/dL (7.8-10.44); Carbon Dioxide 33 mmol/L (23-31); Chloride 95 mmol/L (98-107); Estimated GFR-MDRD 55; Glucose 87 mg/dL (83-110); Potassium 3.6 mmol/L (3.5-5.1); Sodium 136 mmol/L (136-145)
[2017-08-13] MEDS: Mometasone/Formoterol 120 PUFF INHALER INH SCH (06:30)
[2017-08-13 07:52] VITALS: BP 104/61; TEMP 98
[2017-08-13] MEDS: Digoxin 0.125 MG TAB PO SCH (08:41)
[2017-08-13] MEDS: Famotidine 20 MG TAB PO SCH (08:41)
[2017-08-13] MEDS: Furosemide 80 MG TAB PO SCH (08:41)
[2017-08-13] MEDS: Spironolactone 100 MG TAB PO SCH (08:42)
[2017-08-13] MEDS: Enoxaparin Sodium 40 MG/0.4 ML SYRINGE SC SCH (08:42)
--- NOTE | 2017-08-13 09:31 | PDOC.PN ---
- Subjective Encounter Start Date: 08/13/17 Encounter Start Time: 07:20 Patient seen and examined. No new complaints. No overnight events - Objective Resuscitation Status: Resuscitation Status FULL:Full Resuscitation MAR Reviewed: Yes Vital Signs & Weight: Vital Signs (12 hours) Temp Pulse Resp BP Pulse Ox 08/13/17 08:41 81 08/13/17 08:00 98.0 F 81 16 08/13/17 07:49 98.0 F 81 16 104/61 98 08/13/17 07:21 93 L 08/13/17 06:30 73 20 93 L 08/13/17 03:35 96.6 F L 78 14 141/66 H 98 Weight Admit Weight 105 lb 5 oz Weight 119 lb 3.2 oz I&O: 08/12/17 08/13/17 08/14/17 06:59 06:59 06:59 Intake Total 480 Balance 480 Result Diagrams: 08/11/17 07:19 08/13/17 04:55 EKG Reviewed by me: Yes Phys Exam - Physical Examination Constitutional: NAD HEENT: PERRLA, moist MMs, sclera anicteric Neck: no JVD, supple Respiratory: no wheezing, no rales, no rhonchi Cardiovascular: irregular sm+ Gastrointestinal: soft, non-tender, no distention, positive bowel sounds Musculoskeletal: no edema, pulses present Neurological: non-focal, normal sensation Psychiatric: normal affect, A&O x 3 Skin: no rash, normal turgor Dx/Plan (1) Acute kidney failure Status: Resolved (2) Elevated troponin Code(s): R74.8 - ABNORMAL LEVELS OF OTHER SERUM ENZYMES Status: Acute (3) Fall Code(s): W19.XXXA - UNSPECIFIED FALL, INITIAL ENCOUNTER Status: Acute (4) Hypochloremia Code(s): E87.8 - OTH DISORDERS OF ELECTROLYTE AND FLUID BALANCE, NEC Status: Acute (5) Hypokalemia Code(s): E87.6 - HYPOKALEMIA Status: Resolved (6) Hyponatremia Code(s): E87.1 - HYPO-OSMOLALITY AND HYPONATREMIA Status: Acute (7) Asthma Code(s): J45.909 - UNSPECIFIED ASTHMA, UNCOMPLICATED Status: Chronic Qualifiers: Asthma severity: unspecified severity Asthma persistence: intermittent Asthma complication type: uncomplicated Qualified Code(s): J45.20 - Mild intermittent asthma, uncomplicated Comment: stable (8) Chronic respiratory failure with hypoxia, on home O2 therapy Code(s): J96.11 - CHRONIC RESPIRATORY FAILURE WITH HYPOXIA; Z99.81 - DEPENDENCE ON SUPPLEMENTAL OXYGEN Status: Chronic (9) H/O Amplatzer atrial septal defect closure Code(s): Z87.74 - PERSONAL HISTORY OF CONGENITAL MALFORM OF HEART AND CIRC SYS Status: Chronic (10) Hypothyroidism Code(s): E03.9 - HYPOTHYROIDISM, UNSPECIFIED Status: Chronic (11) Protein-calorie malnutrition, moderate Code(s): E44.0 - MODERATE PROTEIN-CALORIE MALNUTRITION Status: Chronic (12) Pulmonary hypertension Code(s): I27.20 - PULMONARY HYPERTENSION, UNSPECIFIED Status: Chronic Comment: continue epoprostenol (13) Severe tricuspid regurgitation by prior echocardiogram Code(s): I07.1 - RHEUMATIC TRICUSPID INSUFFICIENCY Status: Chronic (14) UTI (urinary tract infection) Status: Acute - Plan cont current plan of care * medication reviewed as below * symptomatic treatment * medically stable for discharge * discharge medication reconciliation done. * see discharge summery Review of Systems - Review of Systems Eyes: negative: Pain, Vision Change, Conjunctivae Inflammation, Eyelid Inflammation, Redness, Other ENT: negative: Ear Pain, Ear Discharge, Nose Pain, Nose Discharge, Nose Congestion, Mouth Pain, Mouth Swelling, Throat Pain, Throat Swelling, Other Respiratory: negative: Cough, Dry, Shortness of Breath, Hemoptysis, SOB with Excertion, Pleuritic Pain, Sputum, Wheezing Cardiovascular: negative: chest pain, palpitations, orthopnea, paroxysmal nocturnal dyspnea, edema, light headedness, other Gastrointestinal: negative: Nausea, Vomiting, Abdominal Pain, Diarrhea, Constipation, Melena, Hematochezia, Other Genitourinary: negative: Dysuria, Frequency, Incontinence, Hematuria, Retention , Other Musculoskeletal: negative: Neck Pain, Shoulder Pain, Arm Pain, Back Pain, Hand Pain, Leg Pain, Foot Pain, Other Skin: negative: Rash, Lesions, Eddi, Bruising, Other - Medications/Allergies Allergies/Adverse Reactions: Allergies Allergy/AdvReac Type Severity Reaction Status Date / Time adhesive Allergy Short of Verified 08/08/17 08:26 Breath vancomycin Allergy Verified 08/07/17 23:41 Medications: Current Medications Acetaminophen (Tylenol) 650 mg PO Q4H PRN PRN Reason: Headache/Fever or Pain Last Admin: 08/12/17 21:06 Dose: 650 mg Al Hydroxide/Mg Hydroxide (Maalox) 15 ml PO Q4H PRN PRN Reason: Heartburn or Indigestion Artificial Tears (Tears Naturale) 0 drop EA EYE PRN PRN PRN Reason: Dry Eyes Bumetanide (Bumex) 2 mg PO DAILY PRN PRN Reason: Edema Digoxin (Lanoxin) 0.125 mg PO DAILY [facility] Last Admin: 08/13/17 08:41 Dose: 0.125 mg Diphenhydramine HCl (Benadryl) 50 mg PO HS [facility] Last Admin: 08/12/17 21:04 Dose: 50 mg Enoxaparin Sodium (Lovenox) 40 mg SC 0900 [facility] Last Admin: 08/13/17 08:42 Dose: 40 mg Famotidine (Pepcid) 20 mg PO DAILY [facility] Last Admin: 08/13/17 08:41 Dose: 20 mg Furosemide (Lasix) 80 mg PO 0900 [facility] Last Admin: 08/13/17 08:41 Dose: 80 mg Furosemide (Lasix) 40 mg PO 1400 [facility] Last Admin: 08/12/17 14:10 Dose: 40 mg Guaifenesin (Robitussin Sf) 200 mg PO Q4H PRN PRN Reason: Cough Hydralazine HCl (Apresoline) 10 mg SLOW IVP Q4H PRN PRN Reason: Systolic BP > 180 Ceftriaxone Sodium 1 gm/ (Sodium Chloride) 100 mls @ 200 mls/hr IVPB Q24HR [facility] Last Admin: 08/12/17 14:11 Dose: 100 mls Levothyroxine Sodium (Synthroid) 100 mcg PO 0600 [facility] Last Admin: 08/13/17 05:19 Dose: 100 mcg Loperamide HCl (Imodium) 2 mg PO PRN PRN PRN Reason: Diarrhea/Loose Stools Loratadine (Claritin) 10 mg PO DAILYPRN PRN PRN Reason: Sinus Symptoms Magnesium Hydroxide (Milk Of Magnesium) 30 ml PO DAILYPRN PRN PRN Reason: Constipation Mineral Oil/White Petrolatum (Eucerin Cream) 0 gm TOP BIDPRN PRN PRN Reason: Dry Skin Mometasone Furoate/Formoterol Fumar (Dulera 200 Mcg/5 Mcg Inhaler) 1 puff INH BID-RT [facility] Last Admin: 08/13/17 06:30 Dose: 1 puff Mometasone Furoate/Formoterol Fumar (Dulera 100 Mcg/5 Mcg Inhaler) 1 puff INH BID-RT PRN PRN Reason: Cough Last Admin: 08/12/17 06:44 Dose: 1 puff Ondansetron HCl (Zofran) 4 mg IVP Q6H PRN PRN Reason: Nausea/Vomiting Ondansetron HCl (Zofran Odt) 4 mg PO Q6H PRN PRN Reason: Nausea/Vomiting Epoprostenol Sodium (1.5 Mg) 0 each IV 2100 [facility] Last Admin: 08/12/17 21:07 Dose: 1 each Phenol (Chloraseptic [place] 180 Ml Bot) 0 ml PO PRN PRN PRN Reason: Sore Throat Senna (Senokot) 2 tab PO HSPRN PRN PRN Reason: Constipation Sodium Chloride ([place] Nasal [place] 0.65%) 0 ml EA NARE QIDPRN PRN PRN Reason: Nasal Congestion Sodium Chloride (Flush - Normal Saline) 10 ml IVF Q12HR [facility] Last Admin: 08/13/17 08:42 Dose: 10 ml Sodium Chloride (Flush - Normal Saline) 10 ml IVF PRN PRN PRN Reason: Saline Flush Spironolactone (Aldactone) 100 mg PO BID [facility] Last Admin: 08/13/17 08:42 Dose: 100 mg
[2017-08-13] MEDS: cefTRIAXone\\ROCEPHIN 1 GM in Sodium Chloride 0.9% 100 ML IVPB SCH (10:14)
--- NOTE | 2017-08-13 10:30 | DIS ---
DATE OF ADMISSION: 08/07/2017 DATE OF DISCHARGE: 08/13/2017 PRIMARY CARE PHYSICIAN: Dr. Monzon. DISCHARGE DISPOSITION: Home. PRIMARY DISCHARGE DIAGNOSES: Demand ischemia type 2 myocardial infarction, mechanical fall, hyponatr emia, hypochloremia, acute kidney failure, urinary tract infection, hypokalemia. SECONDARY DISCHARGE DIAGNOSES: Severe tricuspid regurgitation, pulmonary hypertension, moderate prot ein calorie malnutrition, hypothyroidism, history of Amplatzer atrial septal defect closer, chronic r espiratory failure with hypoxia, asthma. PRIMARY PROCEDURE AND OPERATION: None. RADIOLOGICAL INVESTIGATION: Chest x-ray showed no acute cardiopulmonary process. Humeral x-ray show ed no fracture. SIGNIFICANT LABORATORY DATA: WBC 9.4, hemoglobin 12.1, platelet 230. Sodium 136, potassium 3.6, BUN 35, creatinine 1.0, calcium 8.9. LFT normal. Troponin 0.471. Urinalysis suggestive of UTI. Urine culture grew E. coli. DISCHARGE MEDICATIONS: Lasix 80 mg p.o. in the morning, Lasix 40 mg in afternoon, Symbicort 1 puff i nhalation b.i.d., Lanoxin 0.25 mg p.o. daily, Benadryl 50 mg p.o. at bedtime p.r.n., epoprostenol 1.5 mg IV daily, levothyroxine 100 mcg p.o. daily, Macrobid 100 mg p.o. b.i.d. for 7 days, Aldactone 100 mg p.o. b.i.d. CONTRAINDICATIONS: None. CODE STATUS: FULL CODE. INPATIENT CONSULTANTS: Dr. Ortiz and Dr. Monzon was following while in hospital. TEST RESULTS PENDING ON DISCHARGE: None. ALLERGIES: ADHESIVE and VANCOMYCIN. DISCHARGE PLAN: Post hospital, the patient will follow up with primary care physician, Dr. Maria and Dr. Monzon as instructed. HOSPITAL COURSE: A 72-year-old female with above-mentioned medical problem who was admitted by Dr. Kaiser gracia. Please see his H&P for further details. The patient had a mechanical fall at home. The pa tient was found with acute kidney failure, hypokalemia, hyponatremia, hypochloremia. Patient was get ting too much diuretic therapy and that is why she had prerenal acute kidney failure with abnormal el ectrolytes. She was admitted to telemetry floor. We gently hydrated with IV fluid and her renal fun ction as well as all electrolytes improved. When the patient was euvolemic at that point, we started Lasix as per home dosage and we monitored an other day. Her renal function continued to remain normal. The patient was feeling much better. [facility] room workup for her fall related trauma was negative including CT brain. Humeral x-ray and ch est x-ray was unremarkable. The patient is feeling much better. She required antibiotic therapy for her urinary tract infection. Initially, she was given Levaquin, but it was resistant and that is why we started Rocephin, and franco bsequently we changed to Macrobid therapy. She had a significantly abnormal troponin on admission and that is why Cardiology was consulted, but there was no plan for any cardiac catheterization during this admission. Cardiology cleared her for discharge. The patient also wants to go home today. The patient is seen and examined at bedside today. Please see my progress note from today for furthe r detail. Total time spent on discharge day 31 minutes.
--- NOTE | 2017-08-13 13:50 | PDOC.CTH ---
Cardiology Progress Note - Subjective She is doing very well. No new issues. - Objective Vital Signs Temp Pulse Resp BP Pulse Ox 08/13/17 08:41 81 08/13/17 08:00 98.0 F 81 16 08/13/17 07:49 98.0 F 81 16 104/61 98 08/13/17 07:21 93 L 08/13/17 06:30 73 20 93 L 08/13/17 03:35 96.6 F L 78 14 141/66 H 98 Admit Weight 105 lb 5 oz Weight 119 lb 3.2 oz 08/12/17 08/13/17 08/14/17 06:59 06:59 06:59 Intake Total 480 Balance 480 - Physical Examination General/Neuro: alert & oriented x3, NAD Neck: no JVD present Lungs: CTA, unlabored respirations Heart: RRR Abdomen: NT/ND Extremities: + edema B (trace, at baseline.) - Telemetry Telemetry Rhythm: NSR - Labs Result Diagrams: 08/11/17 07:19 08/13/17 04:55 Troponin/CKMB CK-MB (CK-2) 2.7 ng/mL (0-6.6) 08/07/17 18:03 Troponin I 0.471 ng/mL (< 0.028) H* 08/08/17 00:15 - Assessment/Plan 1. Syncope, likely from over diuresis. 2. MASTER, pre renal, resolved. 3. Pulmonary hypertension, chronic. 4. SVT, none seen. 5. NS VT, none seen 6. NSTEMI, conservative therapy. Likely from MASTER. 7. Hypokalemia, resolved. PLAN: - Home today. - Continue current lasix regimen and use Torsemide only as needed. - Home today.
== END 2017-08-13 13:36 | disposition home or self-care (01) | DRG 682 ==
LOC: ERS 17:47 → 2NO 21:08
PROVIDERS: ADMIT Hospitalist; ATTEND Hospitalist
DX: N17.9 Acute kidney failure, unspecified (principal); G93.40 Encephalopathy, unspecified; I21.A1 Myocardial infarction type 2; E87.1 Hypo-osmolality and hyponatremia; J96.11 Chronic respiratory failure with hypoxia; E44.0 Moderate protein-calorie malnutrition; E87.3 Alkalosis; I47.1 Supraventricular tachycardia; N39.0 Urinary tract infection, site not specified; E86.0 Dehydration; E87.8 Other disorders of electrolyte and fluid balance, not elsewhere classified; E87.6 Hypokalemia; R40.2142 Coma scale, eyes open, spontaneous, at arrival to emergency department; R40.2252 Coma scale, best verbal response, oriented, at arrival to emergency department; R40.2352 Coma scale, best motor response, localizes pain, at arrival to emergency department; I07.1 Rheumatic tricuspid insufficiency; I27.20 Pulmonary hypertension, unspecified; I49.3 Ventricular premature depolarization; I45.10 Unspecified right bundle-branch block; R73.9 Hyperglycemia, unspecified; S40.811A Abrasion of right upper arm, initial encounter; E89.0 Postprocedural hypothyroidism; T50.2X5A Adverse effect of carbonic-anhydrase inhibitors, benzothiadiazides and other diuretics, initial encounter; Y92.9 Unspecified place or not applicable; S00.511A Abrasion of lip, initial encounter; S05.11XA Contusion of eyeball and orbital tissues, right eye, initial encounter; W18.39XA Other fall on same level, initial encounter; Y92.000 Kitchen of unspecified non-institutional (private) residence as the place of occurrence of the external cause; J45.20 Mild intermittent asthma, uncomplicated; Z99.81 Dependence on supplemental oxygen; Z91.81 History of falling; Z88.1 Allergy status to other antibiotic agents; Z90.49 Acquired absence of other specified parts of digestive tract; Z90.710 Acquired absence of both cervix and uterus; Z95.818 Presence of other cardiac implants and grafts; Z91.048 Other nonmedicinal substance allergy status; Z86.73 Personal history of transient ischemic attack (TIA), and cerebral infarction without residual deficits; Z80.9 Family history of malignant neoplasm, unspecified
CPT/HCPCS: 36415; 51702; 70450; 71045; 80048; 80053; 81003; 81015; 82248; 82553; 82570; 83735; 84100; 84443; 84484; 84540; 85025; 87077; 87086; 87186; 90715; 93005; 96361; 96374; A4216; G8978-GP-CN; G8979-GP-CK; G8987-GO-CK; G8988-GO-CI; J0696; J1650; J1956; J3010; J7050; Q0162

== ENCOUNTER 2017-10-21 14:23 | Inpatient (IN) | payer MEDICARE ==
[2017-10-21 15:04] LABS: Hemoglobin 16.3 g/dL (12.0-16.0); Mean Corpuscular HGB CONC 33.1 g/dL (32.0-36.0); Mean Corpuscular Hemoglobin 30.9 pg (27.0-31.0); Mean Corpuscular Volume 93.3 fL (78.0-98.0); Mean Platelet Volume 7.3 fL (7.4-10.4); Platelet Count 311 thou/uL (130-400); RBC Distribution Width 13.3 % (11.5-14.5); Red Blood Cell (RBC) Count 5.29 mill/uL (4.20-5.40); White Blood Cell (WBC) Count 15.3 thou/uL (4.8-10.8)
[2017-10-21] MEDS ORDERED: methylPREDNISolone Sod Succ/PF 125 MG/2 ML VIAL ONE (15:06)
--- NOTE | 2017-10-21 15:20 | RAD ---
SINGLE VIEW OF THE CHEST: COMPARISON: 08/07/17. HISTORY: Dyspnea. FINDINGS: A single view of the chest shows an enlarged but stable cardiomediastinal silhouette. Bilateral pulm onary vascular enlargement is seen. There is no evidence of consolidation, mass, or pleural effusion . Increased interstitial lung markings are present. IMPRESSION: Stable cardiomegaly. POS: COURT
[2017-10-21 15:25] LABS: Band 11 % (5-11); Lymphocytes 2 % (21-51); MDiff Complete? YES; Monocytes 6 % (0-10); Neutrophil 80 % (42-75); PLT Morphology Comment Appears Adequate; RBC Morphology Normal; Reactive Lymphocytes 1 % (0-10)
[2017-10-21 15:30] LABS: ALT (SGPT) 27 U/L (8-55); AST (SGOT) 25 U/L (5-34); Albumin 3.5 g/dL (3.4-4.8); Alkaline Phosphatase 81 U/L (40-150); Anion Gap 21 mmol/L (10-20); BUN (Urea Nitrogen) 84 mg/dL (9.8-20.1); Bilirubin, Total 1.4 mg/dL (0.2-1.2); Calc. Creatinine Clearance 0 mL/min (70-130); Calcium 9.9 mg/dL (7.8-10.44); Carbon Dioxide 36 mmol/L (23-31); Chloride 79 mmol/L (98-107); Estimated GFR-MDRD 24; Globulin 3.1 g/dL (2.4-3.5); Glucose 118 mg/dL (83-110); Protein, Total 6.6 g/dL (6.0-8.3); Sodium 133 mmol/L (136-145)
[2017-10-21 15:34] LABS: CKMB 3.9 ng/mL (0-6.6)
[2017-10-21 16:13] LABS: Troponin I 0.309 ng/mL (< 0.028)
[2017-10-21 16:17] LABS: Potassium 2.8 mmol/L (3.5-5.1)
[2017-10-21] MEDS ORDERED: Potassium Chloride 20 MEQ TAB ONE (16:36)
--- NOTE | 2017-10-21 17:56 | CON ---
DATE OF CONSULTATION: 10/21/2017 REASON FOR CONSULTATION: Atrial flutter. HISTORY OF PRESENT ILLNESS: Ms. Stearns is a very pleasant 72-year-old white female who comes to the hospital for she is not feeling well. She is very well known to myself for severe pulmonary hypertension. She has an ASD septal occluder device placed in the past. She has been on anti-pulmonary hypertensive medications intravenously for about 20 years now [facility]. She was admitted about 3 months ago for an acute heart failure exacerbation. She had several episodes of atrial tachycardia that initially were attempted to be treated with verapamil; however, her blood pressure did not tolerate this. She would get really hypotensive, so she was eventually discharged home on digoxin. She states that for the last week, she has noted a decrease in her breathing. She is extremely short of breath, but just trying to stand up, trying to brush her teeth. She admits that she hope this was going to get better, but when it did not, she decided come in and she was found to be in atrial flutter heart rate in the 130s, so Cardiology is being consulted for this. Blood pressure in the 80s/40s. She is also complaining of a lower abdominal pain and has been having a lot of diarrhea for the last week. PAST MEDICAL HISTORY: 1. Pulmonary arterial hypertension, severe. 2. Bronchial asthma. 3. Cataracts. 4. 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 5. History of non-ST elevation myocardial infarction thought to be demand ischemia. 6. History of atrial tachyarrhythmias, treated conservatively. 7. History of nonsustained ventricular tachycardia. PAST SURGICAL HISTORY: 1. Appendectomy. 2. Cholecystectomy. 3. Partial thyroidectomy. 4. Hysterectomy. 5. Slater catheter placement, multiple times. OUTPATIENT MEDICATIONS: Reviewed. ALLERGIES: ADHESIVE, LATEX and VANCOMYCIN. FAMILY HISTORY: Noncontributory. SOCIAL HISTORY: No alcohol, tobacco or drugs. REVIEW OF SYSTEMS: A 12-point review of systems was done and is all negative unless stated in history of present illness. PHYSICAL EXAMINATION: VITAL SIGNS: Blood pressure 84/48, respiratory rate 22, satting 96% on 4 liters nasal cannula, heart rate 130. GENERAL: Awake, alert, oriented x3, in no distress. HEENT: Normocephalic, atraumatic. NECK: Supple. LUNGS: Have reduced breath sounds bilaterally. CARDIOVASCULAR: Tachycardic. There is a grade 4/6 systolic murmur at the left lower sternal border. ABDOMEN: Soft, nontender. EXTREMITIES: 1+ edema. SKIN: Warm and dry. LABORATORY WORK: Reviewed. CBC with a white count 15, hemoglobin 16, hematocrit 49, platelet count of 311. Coags reviewed. Chemistry with a sodium 133, potassium was 2.8, carbon dioxide of 36.7, anion gap of 21, BUN of 84, creatinine of 2.04. GFR of 24, troponin is 0.3. BNP was 2516, albumin 3.5. ASSESSMENT AND PLAN: 1. Pulmonary hypertension with acute exacerbation. 2. Atrial flutter with 2:1 AV block. 3. Hypertension. 4. Hypokalemia. 5. Diarrhea, possibly C-Diff colitis. 6. Acute on chronic kidney injury, likely pre renal. PLAN: 1. She needs to have her potassium replaced. Continue digoxin for rate control , not a good candidate for amiodarone given her pulmonary hypertension. At this time, she will not convert or slow down if we do not replace her potassium , it should be above 4.0. I would recommend oral route for placing more than the IV route. If her blood pressure remains to be low and she continues to have after atrial flutter with rapid ventricular rates, she may be a candidate for cardioversion; however, this needs to be last resort. 2. Judicious use of IV fluids. She is easily to tip over to heart failure. I think she is fluid down right now likely due to her diarrhea. Will have to maintain a positive balance in the next few batista until diarrhea improves. 3. Her BNP is always going to be high given her chronic RV failure and would not be indicative of her fluid status at this time. 4. Once her volume is re-pleated and her potassium back to normal she should slow down on her own. Thank you for letting us participate in the care of your patient. We will follow. ABELARDO
[2017-10-21 18:52] LABS: Digoxin 0.67 ng/mL (0.8-2.0)
[2017-10-21] MEDS ORDERED: NS 0.9% w/ 40 MEQ KCL 1,000 ML IV SCH ×2 (19:00→19:15)
[2017-10-21] MEDS ORDERED: Vancomycin HCl 25 MG/ML Oral PO SCH (19:03)
[2017-10-21] MEDS ORDERED: metroNIDAZOLE 500 MG in Premix Bag 1 BAG IVPB SCH (20:00)
--- NOTE | 2017-10-21 21:07 | CON ---
DATE OF CONSULTATION: 10/21/2017 HISTORY OF PRESENT ILLNESS: Jinny is a 72-year-old female with primary pulmonary hypertension with s evere right-sided heart failure, who had a chemistry profile done yesterday which showed that her pot assium was 2.5. She is to see Cardiology today, Dr. Monzon. She was given increasing dose of diuret ics to try and get her off of fluid. She became dizzy and lightheaded. Now, she is complaining of s ome vague left lower abdominal pain with profuse diarrhea, but nausea or vomiting. She is extremely weak. She came to the ER instead of going to the doctor's office. Pulmonary-holland, she says she is still short of breath, but no fever or chills. Her BUN is increased from baseline 35-84, creatinine of 1-2.04. Clearly, she is a prerenal azotemic. BNP is 2516. She has severe limitation to activity. She can barely walk even 30 feet without getting markedly ricardo rt of breath. BASELINE MEDICATIONS: Spironolactone 100 twice a day, Synthroid 100 a day. Lasix which was recently increased to 80 twice a day along with Zaroxolyn, which has been decreased. She is getting Flolan I V continuously for many years, Digoxin 0.25, and Symbicort as needed. She has a Red man syndrome with vancomycin. Otherwise, previous extensive medical history is well outlined. She has had extensive cardiac arrhyt hmias and have been seen by a local physician. Unfortunately, it is unclear whether she is a xuan te for any kind of ablation. She is at high risk because of severe pulmonary hypertension pressures. PAST SURGICAL HISTORY: Appendix, gallbladder, thyroid, hysterectomy, multiple Slater catheter, mult iple Staph infections. PAST MEDICAL HISTORY: Asthma, cataracts, hypertension. PHYSICAL EXAMINATION: VITAL SIGNS: Sats are surprisingly 96 on 5 liters, pulse 80, blood pressure . CHEST: Decreased breath sounds, no wheezing. CARDIAC: Sinus tachycardia. ABDOMEN: Soft, no masses. LABORATORY DATA: White count 15,000, H&H 16 and 43, platelet count 311. Creatinine is elevated. BU N is elevated. Potassium pending. BNP 216. X-ray shows marked cardiomegaly and marked enlargement of the pulmonary arteries. IMPRESSION: 1. Abdominal pain, diarrhea, rule out Clostridium colitis. 2. Baseline probable pulmonary hypertension, respiratory failure, not a candidate at this time for c ardiac lung transplant. 3. End-stage disease. 4. Prerenal azotemia from recent increase in IV and p.o. diuretics. 5. Reactive airway disease before weight loss. We would withhold diuretics, IV fluids initiated. Supportive care. Input from Dr. Monzon. Pulmonary will follow with along the other physicians there. Prognosis is gu arded. 70 minutes spent with direct patient.
[2017-10-21 22:13] LABS: CKMB 4.1 ng/mL (0-6.6); Potassium 4.9 mmol/L (3.5-5.1)
[2017-10-21 22:17] LABS: Calcium 9.1 mg/dL (7.8-10.44); Carbon Dioxide 25 mmol/L (23-31); Chloride 85 mmol/L (98-107); Glucose 158 mg/dL (83-110); Sodium 128 mmol/L (136-145)
[2017-10-21 22:18] LABS: Anion Gap 23 mmol/L (10-20); BUN (Urea Nitrogen) 80 mg/dL (9.8-20.1); Calc. Creatinine Clearance 0 mL/min (70-130); Estimated GFR-MDRD 24
[2017-10-21 22:19] LABS: Troponin I 0.373 ng/mL (< 0.028)
[2017-10-21] MEDS ORDERED: Sodium Chloride 0.9% 1,000 ML IV SCH (23:15)
[2017-10-21 23:50] LABS: Lactic Acid 3.1 mmol/L (0.5-2.2)
[2017-10-22] MEDS ORDERED: EPINEPHrine 1 MG/10 ML Abboject SYRINGE ONE (01:00)
[2017-10-22] MEDS ORDERED: Calcium Chloride 1 GM/10 ML Abboject SYRINGE ONE (01:00)
[2017-10-22] MEDS ORDERED: Sodium Bicarb 50 MEQ/50 ML Abboject 8.4% SYRINGE ONE (01:00)
--- NOTE | 2017-10-22 01:18 | HP ---
CHIEF COMPLAINT: Generalized weakness. HISTORY OF PRESENT ILLNESS: Patient is a 72-year-old female with multiple medical issues including p ulmonary hypertension, heart failure and hypertension, who presents to the hospital with complaints o f generalized weakness and diarrhea going on since Wednesday. Patient stated that Wednesday she started leon ving significant amount of profuse diarrhea every 2 hours. The patient stated that she has been tryi ng to keep up with her oral hydration. She feels that she has been drinking more than what she has b een urinating. Patient stated that she came in today and not yesterday because she felt very weak an d felt like when she was in atrial fibrillation in the past. The patient denies any fevers or chills , but she does complain of significant abdominal tenderness all over and she states that her diarrhea has slowed down; however, she continues to have significant large amounts of diarrhea and also the n jade stated that she had a very large diarrhea when she came into the ER. The patient denies any sheila st pain or chest tenderness. Denies eating out anywhere. Denies any use of recent antibiotics brendathe r. PAST MEDICAL HISTORY: As of the following, she has pulmonary hypertension, asthma, cataracts and hea rt failure. Her last EF has been noted for that was done in 06/2017 indicated that she has severe tr icuspid regurgitation and severe elevated pulmonary artery pressure with a EF of 50-55%, so most like ly this is valvular issues. PAST SURGICAL HISTORY: She has had appendectomy, hysterectomy, cholecystectomy, multiple Slater cat heter placed over the past 20 years and 4 VELETRI infusion for her pulmonary hypertension. HOME MEDICATIONS: She takes Lasix 80 mg q.a.m., levothyroxine 150 daily, epoprostenol 72 mL IV daily , spironolactone 100 mg b.i.d., furosemide 40 mg q.p.m. 80 mg in the morning and Benadryl 50 mg at be dtime. ALLERGIES: She is allergic to ADHESIVE, LATEX and VANCOMYCIN. I did ask about her VANCOMYCIN allerg y was, she stated that she gets hives. FAMILY HISTORY: The patient denies any known family history of other family members having similar i ssues or any high blood pressure, heart failure. SOCIAL HISTORY: She denies any alcohol, tobacco or illicit drug use. Currently she wants to be FULL CODE. PHYSICAL EXAMINATION: VITAL SIGNS: As of the following temperature of 98.0, heart rate is in the 130s, blood pressure is 9 0/60, she is 97% on 4 liters. GENERAL: She is awake, alert, oriented x3, appears very dehydrated. She has got significant mucous membrane dryness that is noted. CARDIOVASCULAR: S1, S2 present, rate appears to be regular; however, tachycardia. LUNGS: Have mild crackles to bilateral lower bases, otherwise clear. ABDOMEN: Bowel sounds are present x2. She does have significant tenderness all over her abdomen are a upon palpation. EXTREMITIES: She does have +2 lower extremity edema. Neurovascular holland, she has got no neurovascul ar deficits noted. SKIN: Intact. No lesions noted. LABORATORY DATA: Her laboratory results are as of the following; she has a white count of 15.3 with hemoglobin of 16.3 with hematocrit of 49.4. She has no bands. Her chemistry indicates potassium of 2.5, sodium of 136, BUN of 84 and creatinine of 2.04. She has a total bilirubin mildly elevated at 1 .4. Her troponin is 0.3. Her proBNP significantly elevated also. She has not had any scans except for chest x-ray which appears to be normal, just indicated cardiomegaly. ASSESSMENT AND PLAN: The patient is a 72-year-old female who comes into the hospital with complaints of generalized weakness 1. Sepsis, most likely secondary to possible C. diff. Patient has received only a total of 300 mL o f fluid which I was told is most likely from the potassium that she received for potassium replacemen t. I did speak with Cardiology and notified the respiratory therapy assistant that the patient has significant amount of diarrhea and appears to be very dehydrated. He recommended giving the patient fluid very gently. The patient continues to be tachycardic and also hypotensive. I will start her on Flagyl for her p ossible C. diff and will check C. diff. Initially wanted to start her on p.o. vancomycin; however, I spoke with pharmacy and stated that there would be some cross reactivity or some absorption even wit h oral vancomycin. Fidaxomicin would be the next option. However, the stool cultures for C. diff is pending. We will hold all her diuretics for now. The patient is a very difficult patient. She has got severe tricuspid regurgitation and significant pulmonary hypertension. She is most likely going to be in overload, but however, currently she is very dehydrated and henceforth I believe she is tac hycardic. 2. Tachycardia, appears to be in flutter, per Cardiology recommended to just replace electrolytes. We will get a digoxin level in the light of hypokalemia, if I give her more digoxin this would cause more significant toxicity. I am hoping with some IV hydration the tachycardia will improve. 3. Significant dehydration. Again, this is from the significant diarrhea that she has been having g oing on since Wednesday. The patient stated that the reason she came in today was because she just was not feeling well. 4. History of pulmonary hypertension. We will continue to monitor. 5. Hypokalemia. We will replace. 6. Acute kidney injury. Her creatinine is 2.04. This is most likely secondary I believe to dehydra tion also. We will start gentle hydration. We will keep a close eye on intake and output. 7. Elevated troponins. This could be secondary to her tachycardia. Right now we will continue to t rend it and Cardiology has been consulted. 8. Elevated total bilirubin. This is most likely secondary to venous congestion or hepatic congesti on. 9. Deep venous thrombosis prophylaxis. We will put the patient on sequential compression devices fo r now and I have discussed this case with Cardiology, who recommends to hydrate her gently. I did sp eak with the patient. The patient stated specifically that the free lance artist that general production worker right now is also her primary care doctor. I did explain to her that while she is in the hospital, I would be resuming the role of her primary care; however, she kept emphasizing and stating that she wanted Dr. Maria to be the primary care. I have no problem signing off the case. However, I wanted to make sure that the patient was well taken care of and also general production worker physician has been called and notified of t he patient's concerns and again the patient keeps stressing the fact that she wants Dr. Maria to be he r primary doctor.
--- NOTE | 2017-10-22 01:52 | PDOC.EVN ---
Event Note - Event Note Event Note: Attending Note/Critical Care/Abner Blue Called to room by Cod Blue alarm. Arrived to find ACLS in process by team. Nursing reports patient had been sitting up in bed, then suddenly slumped over unresponsive, so nurses called code blue. Family notified of code blue by nurse newspaper carriers supervisor during code. See code sheet for details of meds and chronology. ACLS for PEA and asystole provided. Patient was successfully intubated on first attempt by myself. Placement confirmed by direct visualized of tube through vocal cords, colorimetry, and bilateral breath sounds following placement of 7.5 ET tube. Tube secured. After ~20 minutes of ACLS without ROSC , and without any other therapeutic suggestions by code team, ACLS was ended at 1am. I greeted and informed daughter and family at their arrival and discussed the events leading to the code and during the code. All questions answered. Family is considering autopsy.
[2017-10-22 02:25] VITALS: BP 93/39; TEMP 97.7; BMI 21.9
[2017-10-22] MEDS ORDERED: Levothyroxine Sodium 100 MCG TAB PO SCH (06:00)
[2017-10-22] MEDS ORDERED: Mometasone/Formoterol 120 PUFF INHALER INH SCH (06:30)
--- NOTE | 2017-10-23 21:49 | EKG ---
Test Reason : Blood Pressure : / mmHG Vent. Rate : 132 BPM Atrial Rate : 132 BPM P-R Int : 190 ms QRS Dur : 164 ms QT Int : 378 ms P-R-T Axes : 092 102 009 degrees QTc Int : 560 ms Suspect arm lead reversal, interpretation assumes no reversal Sinus tachycardia with occasional , and consecutive Premature ventricular complexes Non-specific intra-ventricular conduction block Possible Right ventricular hypertrophy Cannot rule out Septal infarct , age undetermined Abnormal ECG Confirmed by CAESAR BUCK M.D. ([id number]), electronic news gathering editor GERRY DESHPANDE ([id number]) on 10/23/2017 9:49:08 PM Referred By: Confirmed By:CAESAR BUCK M.D.
--- NOTE | 2017-10-25 14:12 | DS ---
DATE OF ADMISSION: 10/21/2017 DATE OF : 10/22/2017 DISCHARGE DIAGNOSES: 1. Pulseless electrical activity arrest. 2. Pulmonary hypertension. 3. Severe diarrhea, possible sepsis. 4. History of atrial fibrillation. 5. Hypokalemia. HOSPITAL COURSE: The patient is a 72-year-old female who initially presented to the hospital with ge neralized weakness. On admission, she was found to have severe lab abnormalities including elevated white count and also severe hypokalemia and also a significant elevated creatinine. The patient also had mildly elevated troponins. This was attributed to her tachycardia since she was tachycardic in the 120s to the 130s. The patient was seen by appeals assistant who recommended replacing the potassium a nd also was seen by distillery laborer given her history of pulmonary hypertension. I did speak with Card iology in regards to patient's tachycardia for possible options to slow down the heart rate which wou ld include digoxin; however, given her low potassium digoxin was not a good medication for possible t oxicity also amiodarone would have been the other drug of choice; however, Cardiology did not want to start amiodarone given her history of severe pulmonary hypertension. We were unable to give her any other beta blockers or calcium channel blockers given her very low blood pressure. The patient was resuscitated with IV fluids very gently with concerns for volume overload since she also had signific ant tricuspid regurgitation, severe. Patient then was transferred to the [facility] where I was told per t he nursing staff that she got up to the bedside commode and at that time she became nonresponsive. A t that time, a Code Blue was called. The patient was found to be in PEA. She was resuscitated; shaila dietrich never regained circulation and at that time she was pronounced. The patient's time was 0 059.
--- NOTE | 2017-11-19 10:26 | PQF ---
JOSHUA ROBINS KARISHMA [id number] CLINICAL DOCUMENTATION CLARIFICATION FORM: POST DISCHARGE DATE: 11/19/17 ATTN: DR Kemp Please exercise your independent, professional judgment in responding to the clarification form. Clinical indicators are provided on the bottom of this form for your review Please check appropriate box(s): [ ] Acute Respiratory Failure: [ ] with Hypoxia [ ] with Hypercapnia [ ] Acute On Chronic Respiratory Failure: [ ] with Hypoxia [ ] with Hypercapnia [ ] Acute Respiratory Failure due to: (etiology) [ ] Acute Respiratory Insufficiency following (if applicable): [ ] trauma [ ] surgery [ ] Chronic Respiratory Failure only [ ] with Hypoxia [ ] with Hypercapnia [ ] Hypoxia [ ] Other diagnosis [ ] Unable to determine In addition, please specify: Present on Admission (POA): [ ] Yes [ ] No [ ] Unable to determine For continuity of documentation, please document condition throughout progress notes and discharge summary. Thank You. ED: PRE-INTERVENTION O2 SAT 91% ON 4LNC Increased to 5LNC she wears 5LNC at home. Converses in short phrase SOB is no worse than normal however she is just so fatigued chronic pulmonary hypertension. tightness dyspnea on exertion breath sounds diminished. HX CHF 9- CXR: Vascular congestion 10-21 (Maria) Severe right-sided heart failure / Respiratory failure, not a candidate at this time for cardiac lung transplant 9 Nurses Assessment: unable to lie flat SOB on exertion; SOB; Shallow breathing; Tachypnea; Risks: ED: HX CHF and Severe pulmonary HTN 10-21 (Nicolás): severe pulmonary Arterial Hypertension w/ acute exacerbation Atrial Flutter Treatment: ED: admit to IMCU O2 5LNC CPOE: Consult: Cardio and pulmonary (This form is maintained as a part of the permanent medical record) 2014 [employer] in [place]. All Rights Reserved Daniela [email or web address] [phone] MTDD
== END 2017-10-22 04:00 | disposition expired | DRG 871 ==
LOC: ERS 14:23 → IMCU/EMU 17:54
PROVIDERS: ADMIT Internal Medicine; ATTEND Internal Medicine
PROC: 5A12012 Performance of Cardiac Output, Single, Manual (ICD-10-PCS; principal; 2017-10-22)
PROC: 0BH17EZ Insertion of Endotracheal Airway into Trachea, Via Natural or Artificial Opening (ICD-10-PCS; 2017-10-22)
DX: A41.9 Sepsis, unspecified organism (principal); J96.90 Respiratory failure, unspecified, unspecified whether with hypoxia or hypercapnia; A04.72 Enterocolitis due to Clostridium difficile, not specified as recurrent; N17.9 Acute kidney failure, unspecified; I48.92 Unspecified atrial flutter; I13.0 Hypertensive heart and chronic kidney disease with heart failure and stage 1 through stage 4 chronic kidney disease, or unspecified chronic kidney disease; E86.0 Dehydration; E87.6 Hypokalemia; I27.20 Pulmonary hypertension, unspecified; I25.2 Old myocardial infarction; Z88.1 Allergy status to other antibiotic agents; Z91.040 Latex allergy status; Z79.899 Other long term (current) drug therapy; I27.29 Other secondary pulmonary hypertension; I48.91 Unspecified atrial fibrillation; I07.1 Rheumatic tricuspid insufficiency; I46.9 Cardiac arrest, cause unspecified; J45.909 Unspecified asthma, uncomplicated; N18.9 Chronic kidney disease, unspecified; I50.811 Acute right heart failure
CPT/HCPCS: 36415; 71045; 80051; 80053; 80162; 82553; 83605; 83880; 84484; 85025; 85379; 92950; 93005; 94640; 96361; 96365; 96375; J0171; J2930; J3480; J7620